=== PATIENT | female | born 1940 | race Caucasian/White ===

== ENCOUNTER → 2017-09-18 08:40 | Outpatient (CLI) | payer MEDICARE, SELFPAY ==
[2017-09-18 11:59] LABS: Alanine Aminotransferase 17 U/L (12-78); Albumin Level 3.4 gm/dL (3.4-5.0); Alkaline Phosphatase 75 U/L (46-116); Aspartate Amino Transferase 14 U/L (15-37); Bilirubin,Direct 0.1 mg/dL (0.0-0.2); Bilirubin,Total 0.4 mg/dL (0.2-1.0); Chol/HDL Ratio 4.5 (1-3.5); Cholesterol 211 mg/dL (140-200); HDL Cholesterol 47 mg/dL (29-89); LDL Cholesterol 109 mg/dL (0-130); Total Protein,Serum 6.8 gm/dL (6.4-8.2); Triglycerides 276 mg/dL (30-200); VLDL Cholesterol 55 mg/dL (0-40)
== END ==
PROVIDERS: PCP Internal Medicine; Visit Provider Internal Medicine
DX: E78.5 Hyperlipidemia, unspecified (principal)
CPT/HCPCS: 36415; 80061; 80076

== ENCOUNTER → 2017-10-31 09:24 | Outpatient (CLI) | payer MEDICARE, SELFPAY ==
--- NOTE | 2017-10-31 09:26 | US_ITS ---
US extremity RT limited CLINICAL INDICATION: ITS.REASON: Right knee pain and swelling ORDERING PHYSICIAN: OBDULIO Gray PATIENT AGE: 77 years FINDINGS: Ultrasound survey performed of the right knee shows no obvious Adler's cyst. A small amount fluid is present along the patella anteriorly. IMPRESSION: No Adler's cyst apparent Small amount of fluid along the prepatellar region
== END ==
PROVIDERS: PCP Physician Assistant; Visit Provider Physician Assistant
DX: M25.561 Pain in right knee (principal)
CPT/HCPCS: 76882

== ENCOUNTER → 2018-01-12 09:15 | Outpatient (CLI) | payer MEDICARE, SELFPAY | PROVIDERS: PCP Physician Assistant; Visit Provider Internal Medicine | DX: I25.10 Atherosclerotic heart disease of native coronary artery without angina pectoris (principal); R42 Dizziness and giddiness; I11.9 Hypertensive heart disease without heart failure; E78.2 Mixed hyperlipidemia; R60.9 Edema, unspecified | CPT/HCPCS: 93017 ==

== ENCOUNTER → 2018-01-22 09:55 | Outpatient (CLI) | payer MEDICARE, SELFPAY ==
[2018-01-22 10:30] LABS: Basophils # 0.1 K/mm3 (0-0.2); Basophils % 0.7 % (0.1-2.0); Eosinophils # 0.2 K/mm3 (0.0-0.4); Eosinophils % 2.6 % (0.1-12.0); Hematocrit 43.6 % (37.0-47.0); Hemoglobin 14.2 g/dL (12.2-16.2); Lymphocytes # 2.7 K/mm3 (0.7-4.5); Lymphocytes % 33.5 K/mm3 (10-50); Mean Corpuscular HGB Conc 32.6 g/dL (31.8-35.4); Mean Corpuscular Hemoglobin 28.2 pg (27.0-31.2); Mean Corpuscular Volume 86.5 fl (81-99); Mean Platelet Volume 7.4 fl (7.4-10.4); Monocytes # 0.5 K/mm3 (0.1-1.0); Neutrophils # 4.5 K/mm3 (1.8-7.8); Neutrophils % 57.2 % (37.0-80.0); Platelet Count 383 K/mm3 (142-424); Red Blood Count 5.04 M/mm3 (4.20-5.40); Red Cell Distribution Width 12.6 % (11.5-17.5); White Blood Count 7.9 K/mm3 (4.8-10.8)
[2018-01-22 11:30] LABS: Alanine Aminotransferase 20 U/L (12-78); Albumin Level 3.5 gm/dL (3.4-5.0); Alkaline Phosphatase 78 U/L (46-116); Anion Gap 10.7 mEq/L (5-15); Aspartate Amino Transferase 12 U/L (15-37); Bilirubin,Direct 0.1 mg/dL (0.0-0.2); Bilirubin,Indirect 0.4 mg/dL (0.0-0.9); Bilirubin,Total 0.5 mg/dL (0.2-1.0); Blood Urea Nitrogen 13 mg/dL (7-18); Calcium 9.6 mg/dL (8.5-10.1); Carbon Dioxide 31 mmol/L (21.0-32.0); Chloride 102 mmol/L (98-107); Chol/HDL Ratio 3.8 (1-3.5); Cholesterol 207 mg/dL (140-200); Creatinine,Serum 0.91 mg/dL (0.55-1.02); Estimated Glomerular Filt Rate 60 ml/min (>60); GFR (African American) 73 ML/MIN (>60); Glucose 106 mg/dL (74-106); HDL Cholesterol 54 mg/dL (29-89); LDL Cholesterol 107 mg/dL (0-130); Potassium 4.7 mmoL/L (3.5-5.1); Sodium 139 mmol/L (136-145); Total Protein,Serum 6.9 gm/dL (6.4-8.2); Triglycerides 232 mg/dL (30-200); VLDL Cholesterol 46 mg/dL (0-40)
== END ==
PROVIDERS: PCP Physician Assistant; Visit Provider Physician Assistant
DX: E78.2 Mixed hyperlipidemia (principal); I11.9 Hypertensive heart disease without heart failure; I25.10 Atherosclerotic heart disease of native coronary artery without angina pectoris; R94.39 Abnormal result of other cardiovascular function study; R07.89 Other chest pain
CPT/HCPCS: 36415; 80048; 80061; 80076; 85025

== ENCOUNTER → 2018-01-30 13:11 | Outpatient (CLI) | payer MEDICARE, SELFPAY ==
[2018-01-30 14:17] LABS: Free Thyroxine Index 4.4 ug/dL (5.93-13.13); T4 (Thyroxine) 12.8 ug/dl (4.7-13.3); Thyroid Stimulating Hormone 1.07 uIU/ml (0.358-3.740); Triiodothryronine (T3) Uptake 34 % (31-39)
== END ==
PROVIDERS: PCP Physician Assistant; Visit Provider Physician Assistant
DX: I25.10 Atherosclerotic heart disease of native coronary artery without angina pectoris (principal); E03.9 Hypothyroidism, unspecified
CPT/HCPCS: 36415; 84436; 84443; 84479

== ENCOUNTER → 2018-08-17 09:31 | Outpatient (CLI) | payer MEDICARE, SELFPAY ==
--- NOTE | 2018-08-17 09:37 | XR_ITS ---
XR knee RT 4V HISTORY: ITS.REASON: knee pain ORDERING PHYSICIAN: Jd Fernandez MD PATIENT AGE: 77 years COMPARISON: 190 FINDINGS: Weightbearing views are performed. There are mild tricompartmental osteoarthritic changes. Chondrocalcinosis is present at both medial and lateral menisci. No fracture or dislocation. IMPRESSION: Mild osteoarthritis with chondrocalcinosis
== END ==
PROVIDERS: PCP Physician Assistant; Visit Provider Orthopaedic Surgery
DX: M25.561 Pain in right knee (principal)
CPT/HCPCS: 73564

== ENCOUNTER → 2018-08-22 13:23 | Outpatient (CLI) | payer MEDICARE, SELFPAY ==
--- NOTE | 2018-08-22 13:25 | MR_ITS ---
MR knee RT wo con HISTORY: ITS.REASON: evaluate for meniscal tear/ loose body ORDERING PHYSICIAN: Jd Fernandez MD PATIENT AGE: 77 years Comparison: 08/17/2018 TECHNIQUE: Standard multiplanar multiecho sequences are performed without contrast. FINDINGS: The cruciate ligaments, collateral ligaments, patellar tendon, and quadriceps tendon have an unremarkable appearance. No meniscal tear evident. The patellar cartilage is preserved. There is some decrease in the joint space medially with minimal medial extrusion of the medial meniscus . No fracture or dislocation. No bone bruise. No evidence of avascular necrosis. Small knee joint effusion is present. There is some fluid noted in the prepatellar region which is nonspecific. IMPRESSION: 1. No evidence of internal derangement. 2. Mild osteoarthritic change of the medial compartment with small knee joint effusion
== END ==
PROVIDERS: PCP Emergency Medicine; Visit Provider Orthopaedic Surgery
DX: M25.561 Pain in right knee (principal)
CPT/HCPCS: 73721

== ENCOUNTER → 2019-03-19 13:47 | Outpatient (CLI) | payer MEDICARE, SELFPAY | PROVIDERS: Visit Provider Nurse Practitioner Family | DX: R10.9 Unspecified abdominal pain (principal) | CPT/HCPCS: 87086 ==

== ENCOUNTER → 2019-07-22 14:00 | Outpatient (CLI) | payer MEDICARE, SELFPAY | PROVIDERS: Visit Provider Emergency Medicine | DX: N39.0 Urinary tract infection, site not specified (principal) | CPT/HCPCS: 87086 ==

== ENCOUNTER → 2020-01-01 08:45 | Outpatient (CLI) | payer MEDICARE, SELFPAY ==
[2020-01-01 09:59] LABS: Free T4 (Free Thyroxine) 1.16 ng/dl (0.78-2.19)
[2020-01-01 10:13] LABS: Thyroid Stimulating Hormone 1.01 uIU/mL (0.465-4.68)
== END ==
PROVIDERS: Visit Provider Emergency Medicine
DX: R60.9 Edema, unspecified (principal)
CPT/HCPCS: 36415; 84439; 84443

== ENCOUNTER 2020-03-21 19:22 | Emergency (ER) | payer MEDICARE, SELFPAY ==
--- NOTE | 2020-03-21 19:31 | HMH.EDUTC ---
[facility] [place] Clinical Impression: Radicular pain in left arm Left shoulder pain Qualifiers: Chronicity: acute Qualified Code(s): M25.512 - Pain in left shoulder Disposition: Home, Self-Care Condition on Discharge: Good Instructions: DI for Shoulder Pain Additional Instructions: Rest the extremity, Elevate the extremity as tolerated while you are resting. No heavy lifting. Don't start the oral steroids until tomorrow, since you had the shot here today. Follow up with Dr. Rios (orthopedics) if you are not getting better. I put in a referral but you need to call her office and schedule an appointment. Follow up with your regular doctor. GO TO THE ER FOR ANY WORSENING SYMPTOMS Prescriptions: methylPREDNISolone [Medrol] 4 mg PO DIRECTED 6 Days #21 tab.ds.pk Transmission Status: Pending to [id number] Referrals: Aaron Reed MD [Primary Care Provider] - Joi Rios MD [Physician] - Time of Disposition: 20:02 Medical Decision Making - Medical Records Medical records reviewed: No: I reviewed the patient's medical records. - Rafi Inquiry Pt receiving controlled substance: No Vital Signs: 03/21/20 19:32 03/21/20 20:04 Temperature 98.4 F 98.4 F Temperature Source Oral Pulse Rate 85 Pulse Rate [Right Brachial] 85 Respiratory Rate 14 14 Blood Pressure 185/79 H Blood Pressure [Right Arm] 185/79 H Blood Pressure Mean [Right Arm] 114 Blood Pressure Source [Right Arm] Automatic Cuff Blood Pressure Position [Right Arm] Sitting 02 Sat by Pulse Oximetry 99 Oxygen Delivery Method Room Air - Lab Data Lab results reviewed: Yes: I reviewed the patient's lab results. Orders (Tests/Meds): ED MEDICATIONS Discontinued Medications Generic Name Dose Route Start Last Admin Trade Name Freq PRN Reason Stop Dose Admin Ketorolac Tromethamine 60 mg 03/21/20 19:39 03/21/20 19:46 Toradol 60mg/2ml Vial IM 03/21/20 19:40 60 mg ONCE ONE Administration Methylprednisolone Sodium Succinate 125 mg 03/21/20 19:39 03/21/20 19:46 Solu-Medrol 125mg/2ml Vial IM 03/21/20 19:40 125 mg ONCE ONE Administration [facility] [place] HPI - General Stated complaint: possible pulled muscle in L shoulder,arm,hand Time Seen by Provider: 03/21/20 19:35 - History of Present Illness Provider Complaint: She c/o left shoulder pain that radiates down the arm to her hand at times. This began about a week ago after she moved some heavy funiture. She denies any chest pain, jaw pain or any chance that this could be cardiac related. She states that in the past she has pulled a muscle in her shoulder and it felt just like this. - Related Data Home Medications Medication Instructions Recorded Confirmed aspirin 81 mg tablet,delayed 81 mg PO QDAY 06/28/17 07/22/19 release polyethylene glycol 3350 17 17 g PO DAILY g 10/10/17 07/22/19 gram/dose oral powder Previous Rx's Medication Instructions Recorded atorvastatin 40 mg tablet 40 mg PO DAILY #90 tab 06/21/18 diltiazem HCl 180 mg 180 mg PO DAILY #90 cap 03/07/19 capsule,extended release 24 hr losartan 100 mg tablet 100 mg PO DAILY #90 tab 05/27/19 levofloxacin 500 mg tablet 500 mg PO DAILY #7 tab 07/22/19 phenazopyridine 200 mg tablet 200 mg PO BID 3 Days #6 tab 07/22/19 levothyroxine 125 mcg tablet See Rx Instructions .ROUTE 12/30/19 .COMPLEX #90 tablet hydrochlorothiazide 50 mg tablet See Rx Instructions .ROUTE 02/06/20 .COMPLEX #90 tab estradiol 1 mg tablet See Rx Instructions .ROUTE 03/03/20 .COMPLEX #90 tab methylPREDNISolone [Medrol] 4 mg PO DIRECTED 6 Days #21 03/21/20 tab.ds.pk Allergies Allergy/AdvReac Type Severity Reaction Status Date / Time codeine Allergy Intermediate I-HIVES Verified 07/22/19 10:29 Penicillins Allergy Intermediate I-HIVES Verified 07/22/19 10:29 STEFFANY Inhibitors Allergy Verified 07/22/19 10:29 [facility] History - Hepatitis A Screen Attestation statement::
[2020-03-21 19:32] VITALS: BP 185/79; PULSE 85; RESP 14; TEMP 36.9; O2SAT 99; BMI 28.3
[2020-03-21 20:04] VITALS: BP 185/79; PULSE 85; RESP 14; TEMP 36.9; O2SAT 99
== END 2020-03-21 20:10 | disposition home or self-care (01) ==
PROVIDERS: Emergency Provider Nurse Practitioner Family; PCP Emergency Medicine
DX: M54.12 Radiculopathy, cervical region (principal); X50.0XXA Overexertion from strenuous movement or load, initial encounter; Y92.019 Unspecified place in single-family (private) house as the place of occurrence of the external cause; I25.10 Atherosclerotic heart disease of native coronary artery without angina pectoris; E78.5 Hyperlipidemia, unspecified; I10 Essential (primary) hypertension; E03.9 Hypothyroidism, unspecified; Z88.5 Allergy status to narcotic agent; Z79.899 Other long term (current) drug therapy; Z90.49 Acquired absence of other specified parts of digestive tract; Z90.710 Acquired absence of both cervix and uterus; Z88.0 Allergy status to penicillin
CPT/HCPCS: 96372; 99201

== ENCOUNTER → 2020-11-20 08:41 | Outpatient (CLI) | payer MEDICARE, SELFPAY ==
--- NOTE | 2020-11-20 08:42 | FL_ITS ---
PROCEDURE: FL BARIUM SWALLOW CLINICAL INDICATION: dysphagia to liquids and solids but more symptomatic with solid food COMPARISON: No exams were available for comparison TECHNIQUE: In the upright position the patient was observed to swallow barium in both the AP and lateral view. The cervical esophagus was examined under fluoroscopy with images obtained. The patient was then placed prone in the right anterior oblique position and was observed to swallow barium with Valsalva technique . FLUOROSCOPY TIME: 1.32 FINDINGS: There was no evidence of aspiration. The swallowing function and soft motility are normal. The anterior osteophytic spurring at the C5-6 level causing moderate posterior indentation of the barium column while swallowing causing compromise of the cervical esophageal lumen by approximately 40-50 percent. There is a small sliding hiatal hernia but there is no GE reflux seen during the study. IMPRESSION: Prominent focal osteophytic spurring lower cervical spine which certainly could be a cause for dysphagia primarily with solid foods, small sliding hiatal hernia without GE reflux Dictated by: Dr. Delfino Banegas MD 11/20/2020 12:42 Dr. Delfino Banegas MD in [place] 11/20/2020 12:42
== END ==
PROVIDERS: PCP Emergency Medicine; Visit Provider Otolaryngology
DX: R13.10 Dysphagia, unspecified (principal)
CPT/HCPCS: 74220

== ENCOUNTER → 2020-11-25 09:39 | Outpatient (CLI) | payer MEDICARE, SELFPAY ==
[2020-11-25 11:20] LABS: Blood Urea Nitrogen 16 mg/dl (7-17); Estimated Glomerular Filt Rate 69 ml/min (>60); GFR (African American) 84 ML/MIN (>60)
== END ==
PROVIDERS: Visit Provider Otolaryngology
DX: K11.8 Other diseases of salivary glands (principal)
CPT/HCPCS: 36415; 82565; 84520

== ENCOUNTER → 2020-12-01 12:44 | Outpatient (CLI) | payer MEDICARE, SELFPAY ==
--- NOTE | 2020-12-01 12:44 | CT_ITS ---
PROCEDURE: CT SOFT TISSUE NECK W CON CLINICAL HISTORY: right neck swelling COMPARISON: No exams were available for comparison TECHNIQUE: Oral Contrast: None IV Contrast: 75 mL Isovue 370 Axial images obtained with sagittal and coronal reformats. All CT scans at the facility use one or more dose reduction, viz: automated exposure control, ma/kV adjustment per patient size (including targeted exams where dose is matched to indication, i.e. head), or iterative reconstruction technique. FINDINGS: Nasopharynx has an unremarkable appearance. There is some increased soft tissue density in the left posterior oral pharynx possibly due to incomplete distension. Direct visualization suggested. The epiglottis and glottic region have an unremarkable appearance. Thyroid gland is small. Subglottic area is unremarkable. The parotid glands and submandibular glands are unremarkable. A BB is placed in the area of palpable concern. No abnormality is evident deep to the BB. There is mild prominence of the external jugular vein at this region. No obvious venous thrombosis. No enlarged lymph nodes or masses or abnormal fluid collections are apparent. No sinus air-fluid level or mastoid effusion. There are mild osteoarthritic changes of the TMJs and there is degenerative disc disease at C5-C6 with canal stenosis and bilateral foraminal narrowing. Right foraminal narrowing is present at C4-C5. Lung apices are clear. IMPRESSION: No CT abnormality that would correspond to the placed BB aside from mild prominence of the right external jugular vein. Slight asymmetric increased soft tissue density in the left posterior parapharyngeal region which may only be due to nondistention. Direct visualization suggested to exclude underlying mucosal lesion. Dictated by: Geronimo Wilkerson MD 12/01/2020 16:25 Geronimo Wilkerson MD in [place] 12/01/2020 16:25
== END ==
PROVIDERS: PCP Emergency Medicine; Visit Provider Otolaryngology
DX: K11.8 Other diseases of salivary glands (principal)
CPT/HCPCS: 70491; Q9967

== ENCOUNTER → 2021-02-15 08:46 | Outpatient (CLI) | payer MEDICARE, SELFPAY ==
--- NOTE | 2021-02-15 09:12 | US_ITS ---
PROCEDURE: US EXTREMITY LT LIMITED CLINICAL INDICATION: NODULE BEHIND LT KNEE,LEG PAIN COMPARISON: No exams were available for comparison FINDINGS: Ultrasound is performed of the popliteal fossa of the left knee. No solid mass or cystic lesions identified. IMPRESSION: Unremarkable ultrasound of the left popliteal fossa. If there is indeed a palpable abnormality then MRI may provide further evaluation. Dictated by: Geronimo Wilkerson MD 02/15/2021 14:26 Geronimo Wilkerson MD in [place] 02/15/2021 14:26
== END ==
PROVIDERS: PCP Emergency Medicine; Visit Provider Emergency Medicine
DX: M79.662 Pain in left lower leg (principal); R22.42 Localized swelling, mass and lump, left lower limb
CPT/HCPCS: 76882

== ENCOUNTER 2021-03-01 18:04 | Emergency (ER) | payer MEDICARE, SELFPAY ==
[2021-03-01 18:06] VITALS: BP 192/81; PULSE 78; RESP 13; TEMP 36.7; O2SAT 99; BMI 28.1
--- NOTE | 2021-03-01 18:16 | ECG_ITS ---
APPROVED REPORT Exam: Resting ECG HR:76 bpm ECG Measurements Heart Rate 76 AXES ID 214 P 79 QRSd 84 QRS 35 QT 422 T 62 QTc 474 Conclusion Sinus rhythm with 1st degree AV block Septal infarct, age undetermined Abnormal ECG Electronically signed by : Og Fleming MD 03/02/2021 10:44:52
--- NOTE | 2021-03-01 18:16 | HMH.EDNVD ---
ED Disposition Clinical Impression: Benign positional vertigo Qualifiers: Laterality: unspecified laterality Qualified Code(s): H81.10 - Benign paroxysmal vertigo, unspecified ear Disposition: Home, Self-Care Condition on Discharge: Fair Instructions: Benign Paroxysmal Positional Vertigo, DI for Benign Paroxysmal Positional Vertigo Additional Instructions: Please follow-up with your primary care physician in about 3 to 4 days if you do not notice any improvement. Return to the emergency department immediately if you start noticing difficulty moving your arms, face, legs. Prescriptions: Meclizine HCl [Meclizine 25mg Tab] 25 mg PO Q6H PRN #20 tab PRN Reason: Dizzines Transmission Status: [facility] to [facility] Referrals: Aaron Reed MD [Primary Care Provider] - - Critical Care Critical Care Time: No Attestation: On , the high probability of a clinically significant, sudden or life threatening deterioration of the following system(s) required my full and direct attention, intervention and personal management. The time I documented below is in addition to time spent performing reported procedures but includes the following listed in this critical care notation. Medical Decision Making - Medical Records Medical records reviewed: Yes: I reviewed the patient's medical records. - Rafi Inquiry Pt receiving controlled substance: No Vital Signs: 03/01/21 18:06 03/01/21 18:28 03/01/21 18:30 Temperature 98.1 F Temperature Source Oral Pulse Rate 74 70 Pulse Rate [Left] 78 Respiratory Rate 13 16 16 Blood Pressure 183/77 H 179/76 H Blood Pressure [Right Arm] 192/81 H Blood Pressure Mean 112 111 Blood Pressure Mean [Right Arm] 118 02 Sat by Pulse Oximetry 99 98 98 Oxygen Delivery Method Room Air - Lab Data Lab Results 03/01/21 18:15: WBC 10.6, RBC 5.37, Hgb 15.6, Hct 46.9, MCV 87.2, MCH 29.0, MCHC 33.2, RDW 13.0, Plt Count 412, MPV 7.6, Neut % (Auto) 51.0, Lymph % (Auto) 38.8, [place] % (Auto) 7.1, Eos % (Auto) 2.1, Baso % (Auto) 1.1, Neut # (Auto) 5.4, Lymph # (Auto) 4.1, [place] # (Auto) 0.8, Eos # (Auto) 0.2, Baso # (Auto) 0.1 03/01/21 18:15: Sodium 134 L, Potassium 3.1 L, Chloride 96 L, Carbon Dioxide 29, Anion Gap 12.1, BUN 12, Creatinine 0.80, Estimated Creat Clear 58, Estimated GFR 69, Est GFR ( Amer) 84, Glucose 113 H, Calcium 9.2, Total Bilirubin 0.4, AST 28, ALT 20, Alkaline Phosphatase 88, Total Protein 7.2, Albumin 4.0, Globulin 3.2, Albumin/Globulin Ratio 1.3, Lipase 118 Result diagrams: 03/01/21 18:15 03/01/21 18:15 Orders (Tests/Meds): ED MEDICATIONS Discontinued Medications Generic Name Dose Route Start Last Admin Trade Name Georges PRN Reason Stop Dose Admin Meclizine HCl 50 mg 03/01/21 19:21 03/01/21 19:34 Meclizine 25mg Tablet PO 03/01/21 19:22 50 mg ONCE ONE Administration Ondansetron HCl 4 mg 03/01/21 18:20 03/01/21 18:25 Ondansetron 4mg/2ml Vial IV 03/01/21 18:21 4 mg ONCE ONE Administration - ECG Data Tracing #1 I reviewed this ECG and interpreted as documented below: The patient's EKG was done at 1817. It shows a normal sinus rhythm with a rate of 76 bpm. There is no evidence of acute ischemia. There are Q waves in V1 and V2. These are nonspecific. No evidence of dysrhythmia. Normal Sinus Rhythm: Yes - Reevaluation(s) Time: 19:22 Reevaluation #1: That she feels better and wants to go home. However, when I sat the patient up she started getting dizzy again. This is most consistent with benign positional vertigo given the fact that the patient has no other neurologic focal deficits. The patient will be given meclizine in the emergency department and hopefully will be able to be discharged later with a prescription for meclizine. Patient's blood pressure has improved significantly. It is now in the 166 systolic without any intervention other than Zofran. Time: 20:02 Reevaluation #3: Add meclizine. Whe
[2021-03-01 18:26] LABS: Basophils # 0.1 K/mm3 (0-0.2); Basophils % 1.1 % (0.1-2.0); Eosinophils # 0.2 K/mm3 (0.0-0.4); Eosinophils % 2.1 % (0.1-12.0); Hematocrit 46.9 % (37.0-47.0); Hemoglobin 15.6 g/dL (12.2-16.2); Lymphocytes # 4.1 K/mm3 (0.7-4.5); Lymphocytes % 38.8 % (10-50); Mean Corpuscular HGB Conc 33.2 g/dL (31.8-35.4); Mean Corpuscular Volume 87.2 fl (81-99); Mean Platelet Volume 7.6 fl (7.4-10.4); Monocytes # 0.8 K/mm3 (0.1-1.0); Monocytes % 7.1 % (1.7-9.3); Neutrophils # 5.4 K/mm3 (1.8-7.8); Platelet Count 412 K/mm3 (142-424); Red Blood Count 5.37 M/mm3 (4.20-5.40); White Blood Count 10.6 K/mm3 (4.8-10.8)
[2021-03-01 18:28] VITALS: BP 183/77; PULSE 74; RESP 16; O2SAT 98
[2021-03-01 18:30] VITALS: BP 179/76; PULSE 70; RESP 16; O2SAT 98
[2021-03-01 18:30] LABS: Chloride 96 mmol/L (98-107); Potassium 3.1 mmoL/L (3.5-5.1); Sodium 134 mmol/L (136-145)
[2021-03-01 18:33] LABS: Alanine Aminotransferase 20 U/L (12-78); Albumin/Globulin Ratio 1.3 (1.1-1.8); Alkaline Phosphatase 88 U/L (38-126); Anion Gap 12.1 mEq/L (5-15); Aspartate Amino Transferase 28 U/L (14-36); Bilirubin,Total 0.4 mg/dl (0.2-1.3); Blood Urea Nitrogen 12 mg/dl (7-17); Calcium 9.2 mg/dl (8.4-10.2); Carbon Dioxide 29 mmol/L (22.0-30.0); Creatinine Clearance Estimated 58 mL/min (50-200); Estimated Glomerular Filt Rate 69 ml/min (>60); GFR (African American) 84 ML/MIN (>60); Globulin 3.2 g/dL (1.3-3.2); Glucose 113 mg/dl (74-100); Lipase 118 U/L (23-300); Total Protein,Serum 7.2 g/dl (6.3-8.2)
[2021-03-01 20:06] VITALS: BP 179/76; PULSE 70; RESP 18; TEMP 36.7; O2SAT 98
== END 2021-03-01 20:09 | disposition home or self-care (01) ==
PROVIDERS: Emergency Provider Emergency Medicine; PCP Emergency Medicine
DX: H81.10 Benign paroxysmal vertigo, unspecified ear (principal); I10 Essential (primary) hypertension; E03.9 Hypothyroidism, unspecified; E78.5 Hyperlipidemia, unspecified
CPT/HCPCS: 80053; 83690; 85025; 93005; 96374; 99282; J2405

== ENCOUNTER → 2021-03-04 12:46 | Outpatient (CLI) | payer MEDICARE, SELFPAY ==
--- NOTE | 2021-03-04 12:46 | MR_ITS ---
PROCEDURE: MR KNEE LT WO CON CLINICAL INDICATION: mass? Knee pain with possible mass COMPARISON: MR KNEERTWO MR knee RT wo con from 08/22/2018 TECHNIQUE: Routine multiplanar multi echo sequences are performed without gadolinium enhancement. FINDINGS: The cruciate ligaments appear intact the collateral ligaments are unremarkable. The patellar tendon and quadriceps tendon have an unremarkable appearance. The patellar cartilage is preserved. Nondisplaced horizontal tear involves the anterior horn of the medial meniscus medially which extends to the anterior free edge. There is a small knee joint effusion. There is slight increased T2 signal involving the posterior horn of the medial meniscus but does not meet criteria for meniscal tear. Small knee joint effusion noted. No bone bruise. No mass apparent. There are minimal osteoarthritic changes IMPRESSION: Nondisplaced horizontal tear involves the anterior horn of the lateral meniscus medially with small knee joint effusion and mild osteoarthritic change. Dictated by: eGronimo Wilkerson MD 03/05/2021 12:47 Geronimo Wilkerson MD in [place] 03/05/2021 12:47
== END ==
PROVIDERS: PCP Emergency Medicine; Visit Provider Emergency Medicine
DX: M25.562 Pain in left knee (principal)
CPT/HCPCS: 73721

== ENCOUNTER → 2021-03-08 10:35 | Outpatient (CLI) | payer MEDICARE, SELFPAY | PROVIDERS: PCP Emergency Medicine; Visit Provider Nurse Practitioner | DX: Z11.52 Encounter for screening for COVID-19 (principal); U07.1 COVID-19 | CPT/HCPCS: C9803; U0003; U0005 ==

== ENCOUNTER → 2021-03-16 15:50 | Outpatient (CLI) | payer MEDICARE, SELFPAY ==
[2021-03-16] VITALS (9 sets, daily range): BP systolic 140–188; BP diastolic 74–89; PULSE 61–86; RESP 16–18; TEMP 36.1–36.2; O2SAT 98
--- NOTE | 2021-03-16 12:31 | PC.NURSE ---
INFUSION STARTED AT 1149 AND COMPLETED AT 1225. PT SITTING IN CHAIR DRINKING GORDY MIST
== END | disposition home or self-care (01) ==
PROVIDERS: PCP Emergency Medicine; Visit Provider Emergency Medicine
DX: U07.1 COVID-19 (principal)
CPT/HCPCS: 96365

== ENCOUNTER → 2021-03-30 12:28 | Outpatient (CLI) | payer MEDICARE, SELFPAY ==
--- NOTE | 2021-03-30 12:31 | XR_ITS ---
PROCEDURE: XR KNEE LT 4V CLINICAL INDICATION: left knee pain COMPARISON: CR [id number] XR knee RT 3V from 10/28/2017 CR [id number] XR knee RT 4V from 08/17/2018 FINDINGS: No fracture or dislocation. No lytic or blastic change. There is normal mineralization. There are mild tricompartmental osteoarthritic changes. Other findings:Minimal chondrocalcinosis of the medial and lateral meniscus. IMPRESSION: Mild osteoarthritis with chondrocalcinosis. Dictated by: Geronimo Wilkerson MD 03/30/2021 16:57 Geronimo Wilkerson MD in [place] 03/30/2021 16:57
--- NOTE | 2021-03-30 14:05 | XR_ITS ---
PROCEDURE: XR HIP LT 2-3V W/PELVIS CLINICAL INDICATION: left hip pain COMPARISON: No exams were available for comparison FINDINGS: An AP view of the pelvis shows mild osteoarthritic changes of both hips. Two views of the left hip show no fracture or dislocation. No lytic or blastic change. Nonspecific small areas of calcification located along the lateral aspect of the acetabulum and along the greater trochanter of the left femur. Suture line is present in the left pelvic region. There are mild degenerative changes of the SI joints. Degenerative changes are also present in the lower lumbar spine. IMPRESSION: Mild osteoarthritic changes of the hips, no acute finding. Dictated by: Geronimo Wilkerson MD 03/30/2021 15:03 Geronimo Wilkerson MD in [place] 03/30/2021 15:03
== END ==
PROVIDERS: PCP Emergency Medicine; Visit Provider Orthopaedic Surgery
DX: M25.562 Pain in left knee (principal); M25.552 Pain in left hip
CPT/HCPCS: 73502; 73564

== ENCOUNTER 2021-04-22 11:00 | Outpatient (RCR) | payer MEDICARE, SELFPAY ==
--- NOTE | 2021-04-07 10:37 | HMH.PTOPEV ---
PT Outpatient Evaluation Rehab PT Outpatient Evaluation Start: 04/07/21 10:24 Freq: Status: Active Protocol: Document 04/07/21 10:24 CONSTANTINO (Rec: 04/07/21 10:37 CONSTANTINO [id number]) Electronically Signed By Ramone Mcneil, PT 04/07/21 10:24 Outpatient Therapy Subjective History Subjective History Patient is an 80 year old female presenting to outpatient PT with reports of L knee pain starting approximately 1 month ago. Patient reports that symptom onset started after increased activities going up and down stairs. Most recent imaging indicates lateral meniscus tear and OA. Pain is specific to distal hamstring insertions lateral >medail. Comorbidities include hx of lumbar discectomy x 2, cholecystectomy and HTN. Chief Complaint Pain,Stiff,Swelling,Catches/ Locks,Weakness Symptom Type Sharp,Burning Symptoms Relieved By Rest/Positioning,OTC Meds Symptoms Aggravated By Standing,Physical Activity, Walking Prior Functional Limitations None Current Functional Limitations Housework,Standing,Walking, Stairs,Balance Symptom Description Constant but Variable Level of pain today (0-10) 2 Pain scale - at its best (0-10) 1 Pain scale - at its worst (0-10) 9 Hip/Knee Eval Gait Observation General Gait Pattern Observation Antalgic Gait,Decrease Weight Bear (L) Palpation Tenderness left Knee Palpation Finding Tenderness Knee Palpation Overall Comment distal HS insertions lateral> medial 3/4 MMT Hip Flexion Strength Grade 4- Good- Hip Abduction Strength Grade 4 Good Hip Adduction Strength Grade 4 Good Hip Extension Strength Grade 4- Good- Hip External Rotation Strength Grade 4- Good- Hip Internal Rotation Strength Grade 4- Good- Knee Extension Strength Grade 4- Good- Knee Flexion Strength Grade 4- Good- ROM Hip ROM Reason Not Measured Within Functional Limits Knee Extension Active Range of Motion ( -4 degrees) Knee Flexion Active Range of Motion ( 120 degrees) Special Tests Knee Pivot Shift Test Negative Left Knee Valgus Stress Test Negative Left Knee Varus Stress Test Negative Left Knee Coral Test
== END 2021-04-22 11:05 | disposition home or self-care (01) ==
LOC: PT 11:00
PROVIDERS: PCP Emergency Medicine; Visit Provider Orthopaedic Surgery
DX: M17.12 Unilateral primary osteoarthritis, left knee; S83.282D Other tear of lateral meniscus, current injury, left knee, subsequent encounter
CPT/HCPCS: 97110; 97163

== ENCOUNTER 2022-07-25 20:49 | Emergency (ER) | payer MEDICARE, SELFPAY ==
[2022-07-25 20:50] VITALS: BP 190/90; PULSE 113; RESP 16; TEMP 36.7; O2SAT 97; BMI 27.6
--- NOTE | 2022-07-25 21:21 | HMH.EDSKAF ---
Discharge Plan Disposition Patient Disposition: Home, Self-Care Chief Complaint: Skin/Abscess/Foreign Body Prescriptions Prescriptions: No Action levothyroxine 125 mcg tablet See Rx Instructions .ROUTE .COMPLEX Qty: 90 3RF Dose Instruction: TAKE ONE TABLET BY MOUTH EVERY DAY Rx Instructions: TAKE ONE TABLET BY MOUTH EVERY DAY hydrochlorothiazide 50 mg tablet See Rx Instructions .ROUTE .COMPLEX Qty: 90 3RF Dose Instruction: TAKE ONE TABLET BY MOUTH EVERY DAY Rx Instructions: TAKE ONE TABLET BY MOUTH EVERY DAY estradiol 1 mg tablet See Rx Instructions .ROUTE .COMPLEX Qty: 90 0RF Dose Instruction: TAKE 1 TABLET BY MOUTH EVERY DAY Rx Instructions: TAKE 1 TABLET BY MOUTH EVERY DAY Referrals Follow up/Referrals: Aaron Reed MD [Primary Care Provider] - See instructions Clinical Impressions Clinical Impression: Superficial laceration Instructions Patient Instructions: DI for Minor Laceration Discharge ED Provider: Brianna (ED)Aaron Skin/Abscess/FB HPI General Chief complaint: Skin/Abscess/Foreign Body Stated complaint: vaginal bleeding Time Seen by Provider: 07/25/22 21:21 Mode of Arrival: Ambulatory Source of Information: Patient and Medical Record Limitations: No Limitations Description of Symptoms (Recalled from ER Triage Doc. by RN): the pt c/o bleeding from vaginal area the pt states that she felt as if she had an odor and that she thought maybe it was coming from the hair so she snipped the hair and knicked her skin on the left lower labia History of Present Illness HPI narrative: snipped lt ext vaginal area tonight with persistent bleeding complaint: laceration Onset (ago): hour(s) Location: genitals Severity: mild Associated symptoms: denies other symptoms Treatments prior to arrival: none Related Data Previous Rx's Medication Instructions Recorded levothyroxine 125 mcg tablet See Rx Instructions .Route 10/05/21 .COMPLEX #90 tabs hydrochlorothiazide 50 mg tablet See Rx Instructions .Route 05/12/22 .COMPLEX #90 tabs estradiol 1 mg tablet See Rx Instructions .Route 05/23/22 .COMPLEX #90 tabs Allergies Allergy/AdvReac Type Severity Reaction Status Date / Time codeine Allergy Intermediate I-HIVES Verified 03/30/21 14:45 Penicillins Allergy Intermediate I-HIVES Verified 03/30/21 14:45 STEFFANY Inhibitors Allergy Verified 03/30/21 14:45 [facility] Disclaimer: The information contained in this section may have been updated after the patient was seen, as this information can be updated by other users. Social History Smoking Status: Smoker, status unknown second hand exposure: No alcohol intake: never substance use type: denies use current occupational status: retired Travel in the last 8 weeks: None household members: spouse and family housing: house current occupational exposures/hazards: No ROS Obtained: Yes All systems reviewed & no additional complaints except as documented Physical Exam General General appearance: alert Head Head exam: normocephalic Eye Eye exam: Present PERRL and EOMI ENT ENT exam: Present mucous membranes dry Neck Neck exam: Present trachea midline Respiratory Respiratory exam: Absent respiratory distress Cardiovascular Cardiovascular exam: Present regular rate Abdominal Exam Abdominal exam: Present soft External exam: Present other (sl bleeding lt ext vaginal area ) Extremities Exam Extremities exam: Present full ROM Neurological Exam Neurological exam: Present alert and CN II-XII intact Psychiatric Psychiatric exam: Present normal affect Skin Skin exam: Absent rash Medical Decision Making Medical Records Medical records reviewed: Yes I reviewed the patient's medical records. Rafi Inquiry Pt receiving controlled substance: No Vital Signs: 07/25/22 20:50 Temperature 98.1 F Temperature Source Oral Pulse Rate [Left] 113 H Respiratory Rate 16
[2022-07-25 21:35] VITALS: BP 165/83; PULSE 76; RESP 18; TEMP 36.8; O2SAT 96
== END 2022-07-25 21:37 | disposition home or self-care (01) ==
PROVIDERS: Emergency Provider Emergency Medicine; PCP Emergency Medicine
DX: N93.9 Abnormal uterine and vaginal bleeding, unspecified (principal)
CPT/HCPCS: 99283

== ENCOUNTER → 2022-11-01 09:15 | Outpatient (CLI) | payer MEDICARE, SELFPAY ==
[2022-11-01 14:21] LABS: Basophils % 0.6 % (0.1-2.0); Eosinophils # 0.1 K/mm3 (0.0-0.4); Eosinophils % 1.6 % (0.1-12.0); Hematocrit 46.2 % (37.0-47.0); Hemoglobin 15.2 g/dL (12.2-16.2); Lymphocytes # 2.5 K/mm3 (0.7-4.5); Lymphocytes % 36.6 % (10-50); Mean Corpuscular HGB Conc 32.8 g/dL (31.8-35.4); Mean Corpuscular Hemoglobin 28.6 pg (27.0-31.2); Mean Corpuscular Volume 87.1 fl (81-99); Mean Platelet Volume 9.4 fl (7.4-10.4); Monocytes # 0.5 K/mm3 (0.1-1.0); Monocytes % 7.5 % (1.7-9.3); Neutrophils # 3.7 K/mm3 (1.8-7.8); Neutrophils % 53.7 % (37.0-80.0); Platelet Count 366 K/mm3 (142-424); Red Blood Count 5.31 M/mm3 (4.20-5.40); Red Cell Distribution Width 12.9 % (11.5-17.5); White Blood Count 6.9 K/mm3 (4.8-10.8)
[2022-11-01 14:32] LABS: Chloride 93 mmol/L (98-107)
[2022-11-01 14:33] LABS: Potassium 3.9 mmoL/L (3.5-5.1); Sodium 134 mmol/L (136-145)
[2022-11-01 14:35] LABS: Alanine Aminotransferase 19 U/L (12-78); Albumin/Globulin Ratio 1.4 (1.1-1.8); Alkaline Phosphatase 75 U/L (38-126); Anion Gap 15.9 mEq/L (5-15); Aspartate Amino Transferase 27 U/L (14-36); Bilirubin,Total 0.6 mg/dl (0.2-1.3); Blood Urea Nitrogen 12 mg/dl (7-17); Calcium 9.2 mg/dl (8.4-10.2); Carbon Dioxide 29 mmol/L (22.0-30.0); Estimated Glomerular Filt Rate 69 ml/min (>60); GFR (African American) 83 ML/MIN (>60); Globulin 2.8 g/dL (1.3-3.2); Glucose 107 mg/dl (74-100); Total Protein,Serum 6.8 g/dl (6.3-8.2)
[2022-11-01 14:51] LABS: Triiodothryronine (T3) Uptake 32 % (23.5-40.5)
[2022-11-01 14:52] LABS: Free Thyroxine Index 4.4 ug/dL (5.93-13.13); T4 (Thyroxine) 13.9 ug/dl (5.53-11.0)
[2022-11-01 15:05] LABS: Thyroid Stimulating Hormone 0.32 uIU/mL (0.465-4.68)
== END ==
PROVIDERS: PCP Nurse Practitioner Family; Visit Provider Nurse Practitioner Family
DX: E03.9 Hypothyroidism, unspecified (principal)
CPT/HCPCS: 80053; 84436; 84443; 84479; 85025

== ENCOUNTER → 2022-11-08 10:14 | Outpatient (CLI) | payer MEDICARE, SELFPAY ==
--- NOTE | 2022-11-08 10:18 | XR_ITS ---
FINAL REPORT CLINICAL HISTORY: right knee pain FINDINGS: RIGHT KNEE: 4 views of the right knee obtained. There is no acute fracture or dislocation. There are mild degenerative changes. Meniscal calcification is noted. There is no soft tissue abnormality. IMPRESSION: No acute fracture Reviewed, Interpreted and Dictated by Carrington Adams III, MD Transcribed by Cristina Phillips Authenticated and [facility]
== END ==
PROVIDERS: PCP Emergency Medicine; Visit Provider Nurse Practitioner Family
DX: M25.561 Pain in right knee (principal)
CPT/HCPCS: 73562

== ENCOUNTER 2022-11-14 16:07 | Emergency (ER) | payer MEDICARE, SELFPAY ==
[2022-11-14 16:55] VITALS: BP 174/89; PULSE 70; RESP 20; TEMP 36.7; O2SAT 98; BMI 27.3
--- NOTE | 2022-11-14 17:18 | EXP.UTC ---
Discharge Plan Disposition Patient Disposition: Home, Self-Care Condition: Good Prescriptions Prescriptions: No Action hydrochlorothiazide 50 mg tablet 50 mg PO DAILY Rx Instructions: TAKE ONE TABLET BY MOUTH EVERY DAY estradiol 1 mg tablet 1 mg PO DAILY Rx Instructions: TAKE 1 TABLET BY MOUTH EVERY DAY levothyroxine 112 mcg capsule 112 mcg PO DAILY Referrals Follow up/Referrals: Aaron Reed MD [Primary Care Provider] - See instructions Activity Restrictions/Add. Instructions Additional Instructions/Restrictions: *weight bearing as tolerated Use your walker to help with getting around *RICE, Rest the extremity, Ice 15-20 minutes 3-4 times daily, Compress- wear the johnny wrap as discussed as much as possible to help reduce swelling and pain, Elevate the extremity when at rest *Johnny wrap is for support and help control swelling, use it except in the shower. Be sure that is not to tight but not to loose either *Elevate when resting? *Ibuprofen if you can take every 6-8 hours as needed for pain an inflammation. If need something more can take Tylenol in between doses of Ibuprofen to help Immediately follow up with your family doctor for new or worsening of symptoms, or no noticeable improvement over the next 3-5 days Clinical Impressions Clinical Impression: Knee pain Instructions Patient Instructions: DI for Knee Pain Discharge ED Provider: Katherin Hayden [facility] General Stated complaint: AO 10/31, right knee pain Mode of Arrival: Ambulatory Source of Information: Patient Limitations: No Limitations Time Seen by Provider: 11/14/22 17:10 Description of Symptoms (Recalled from Triage Doc. by RN): PATIENT C/O RIGHT KNEE PAIN X 3 WEEKS. NO KNOWN INJURY HEENT Symptoms (Recalled from RN notes): No Resp Symptoms (Recalled from RN notes): No Skin Symptoms (Recalled from RN notes): No MS Symptoms (Recalled from RN notes): Yes Functional Status (Recalled from RN notes): WNL History of Present Illness Provider Complaint: Patient states that she has been having pain in her right knee for about 3 weeks States that she has been seen several times and got injections but hasnt helped much States that she has seen PCP and Orthopedics States that today her knee was hurting her worse and she called to get into to Ortopedics but they was unable to get her in so she came in here to see if she could get something to help with the pain Denies new injury Related Data Home Medications Medication Instructions Recorded Confirmed estradiol 1 mg tablet 1 mg PO DAILY Supplement 11/14/22 11/14/22 hydrochlorothiazide 50 mg tablet 50 mg PO DAILY Hypertension 11/14/22 11/14/22 levothyroxine 112 mcg capsule 112 mcg PO DAILY Hypothyroid 11/14/22 11/14/22 Allergies Allergy/AdvReac Type Severity Reaction Status Date / Time codeine Allergy Intermediate I-HIVES Verified 11/08/22 10:49 Penicillins Allergy Intermediate I-HIVES Verified 11/08/22 10:49 JOHNNY Inhibitors Allergy Verified 11/08/22 10:49 Worker's Comp Is this a Worker's Comp case?: No PFSH PFS Disclaimer: The information contained in this section may have been updated after the patient was seen, as this information can be updated by other users. Social History Smoking Status: Never smoker second hand exposure: No alcohol intake: never substance use type: denies use current occupational status: retired Travel in the last 8 weeks: None household members: spouse and family housing: house current occupational exposures/hazards: No ROS Obtained: Yes All systems reviewed & no additional complaints except as documented and Yes Systems reviewed as appropriate & no additional complaints except as documented Constitutional Constitutional: Reports system reviewed and no additional complaints, except as documented and Reports as per HPI ENT Ears, Nose, Mouth, and Throat: Rep
[2022-11-14 17:34] VITALS: BP 174/89; PULSE 70; RESP 20; TEMP 36.7; O2SAT 98
== END 2022-11-14 17:45 | disposition home or self-care (01) ==
PROVIDERS: Emergency Provider Nurse Practitioner; PCP Emergency Medicine
DX: M25.561 Pain in right knee (principal)
CPT/HCPCS: 96372; 99212; 99214; G0463

== ENCOUNTER → 2023-01-10 16:49 | Outpatient (CLI) | payer MEDICARE, SELFPAY | PROVIDERS: PCP Emergency Medicine; Visit Provider Emergency Medicine | DX: N39.0 Urinary tract infection, site not specified (principal); B96.89 Other specified bacterial agents as the cause of diseases classified elsewhere | CPT/HCPCS: 87086; 87088 ==

== ENCOUNTER → 2023-01-16 12:19 | Outpatient (CLI) | payer MEDICARE, SELFPAY ==
--- NOTE | 2023-01-16 12:19 | NM_ITS ---
APPROVED REPORT Exam: Nuclear Stress Test Indication: HTN, FM HX, C.P., SOB, PALPITATIONS, FATIGUE Patient Location: ER [place] Tech:CLARISA Mac RT(R)(N) Ht: 5 ft 7 in Wt: 173 lbs Bra Size: 34B BSA: 1.90 m2 BMI: 27.0 History: HTN, FM HX, C.P., SOB, PALPITATIONS, FATIGUE REST IMAGES ONLY-PATIENT'S EXAM WAS NOT FINISHED DUE TO HIGH BLOOD PRESSURE PT WAS SENT TO THE ER, AND HAD A HEART CATH ON THE 01-20-23 Cardiac Stress and Resting SPECT Images: The patient underwent resting imaging only. The remainder of her exam was not completed due to elevated blood pressure, after which she was transferred to the ER. During her hospitalization she eventually underwent cardiac catheterization on 01/20/2023. Resting imaging demonstrates a large sized, severe, perfusion defect in the septal and anteroseptal LV wall. Distinction between fixed versus reversible perfusion defect cannot be made due to absence of stress imaging. Gated imaging is not available due to in availability of stress imaging. Conclusion: The patient underwent resting imaging only. The remainder of her exam was not completed due to elevated blood pressure, after which she was transferred to the ER. During her hospitalization she eventually underwent cardiac catheterization on 01/20/2023. Resting imaging demonstrates a large sized, severe, perfusion defect in the septal and anteroseptal LV wall. Distinction between fixed versus reversible perfusion defect cannot be made due to absence of stress imaging. Gated imaging is not available due to in availability of stress imaging. Electronically signed by : Jessica Melgoza, 01/31/2023 13:14:50
== END ==
PROVIDERS: PCP Emergency Medicine; Visit Provider Emergency Medicine
DX: I25.10 Atherosclerotic heart disease of native coronary artery without angina pectoris (principal)
CPT/HCPCS: 78452; A9502

== ENCOUNTER 2023-01-16 13:47 | Emergency (ER) | payer MEDICARE, SELFPAY ==
[2023-01-16 13:53] VITALS: BP 215/86; PULSE 82; RESP 17; TEMP 36.6; O2SAT 97; BMI 27.1
[2023-01-16 14:01] VITALS: BP 198/86; PULSE 78; O2SAT 97
--- NOTE | 2023-01-16 14:14 | PC.NURSE ---
DR MORA AT BEDSIDE
--- NOTE | 2023-01-16 14:26 | HMH.EDGENADL ---
Discharge Plan Disposition Patient Disposition: Home, Self-Care Prescriptions Prescriptions: No Action cephalexin 500 mg capsule 500 mg PO BID Qty: 14 0RF lisinopril 5 mg tablet 5 mg PO DAILY Qty: 30 0RF estradiol 1 mg tablet 1 mg PO DAILY Qty: 90 0RF Rx Instructions: TAKE 1 TABLET BY MOUTH EVERY DAY hydrochlorothiazide 50 mg tablet 50 mg PO DAILY Rx Instructions: TAKE ONE TABLET BY MOUTH EVERY DAY levothyroxine 112 mcg capsule 112 mcg PO DAILY Referrals Follow up/Referrals: Aaron Reed MD [Primary Care Provider] - See instructions Activity Restrictions/Add. Instructions Additional Instructions/Restrictions: Follow-up with your family doctor regarding visit to the emergency department. If you have any worsening of your condition or any other concerning signs or symptoms, return to the emergency department or your primary care doctor for further evaluation. Clinical Impressions Clinical Impression: Asymptomatic hypertension Discharge ED Provider: Willie Hwang General Adult HPI General Chief complaint: Recheck/Abnormal Lab/Rx Stated complaint: elevated bp Time Seen by Provider: 01/16/23 13:55 Mode of Arrival: Wheelchair Limitations: No Limitations Description of Symptoms (Recalled from ER Triage Doc. by RN): PT BROUGHT FROM STRESS LAB FOR ELEVATED B/P. [employer] HELPER REPORTS SYSTOLIC B/P OVER 200. PT ASYMPTOMATIC. History of Present Illness HPI narrative: This is an 82-year-old female with history of hypertension, hyperlipidemia, CAD presenting with asymptomatic hypertension. Patient states that she was in clinic receiving stress test today when she was told her blood pressure was too high to receive stress test, so was sent to the emergency department. Patient denies any symptoms at this time. Related Data Home Medications Medication Instructions Recorded Confirmed hydrochlorothiazide 50 mg tablet 50 mg PO DAILY Hypertension 11/14/22 01/10/23 levothyroxine 112 mcg capsule 112 mcg PO DAILY Hypothyroid 11/14/22 01/10/23 Previous Rx's Medication Instructions Recorded estradiol 1 mg tablet 1 mg PO DAILY Supplement #90 tabs 11/25/22 cephalexin 500 mg capsule 500 mg PO BID #14 caps 01/10/23 lisinopril 5 mg tablet 5 mg PO DAILY #30 tabs 01/10/23 Allergies Allergy/AdvReac Type Severity Reaction Status Date / Time codeine Allergy Intermediate I-HIVES Verified 01/10/23 08:52 Penicillins Allergy Intermediate I-HIVES Verified 01/10/23 08:52 STEFFANY Inhibitors Allergy Verified 01/10/23 08:52 PFSH [facility] Disclaimer: The information contained in this section may have been updated after the patient was seen, as this information can be updated by other users. Social History Smoking Status: Never smoker second hand exposure: No alcohol intake: never substance use type: denies use current occupational status: retired Travel in the last 8 weeks: None household members: spouse and family housing: house current occupational exposures/hazards: No ROS Obtained: Yes All systems reviewed & no additional complaints except as documented Physical Exam General General appearance: alert and in no apparent distress Head Head exam: atraumatic, normocephalic and normal inspection Eye Eye exam: Present normal appearance, PERRL and EOMI ENT ENT exam: Present normal exam, normal oropharynx, mucous membranes moist, TM's normal bilaterally and normal external ear exam Neck Neck exam: Present normal inspection, full ROM and trachea midline; Absent meningismus or lymphadenopathy Chest Chest inspection: Present normal inspection and symmetric chest wall rise; Absent tenderness Respiratory Respiratory exam: Present normal lung sounds bilaterally; Absent respiratory distress Cardiovascular Cardiovascular exam: Present regular rate and normal rhythm; Absent JVD Abdominal Exam Abdominal exam: Present soft and normal bowel s
[2023-01-16 14:31] VITALS: BP 186/81; PULSE 74; O2SAT 99
[2023-01-16 14:31] LABS: Basophils # 0.1 K/mm3 (0-0.2); Basophils % 0.5 % (0.1-2.0); Eosinophils # 0.1 K/mm3 (0.0-0.4); Eosinophils % 1.2 % (0.1-12.0); Hematocrit 45.9 % (37.0-47.0); Hemoglobin 14.9 g/dL (12.2-16.2); Lymphocytes # 2.4 K/mm3 (0.7-4.5); Lymphocytes % 25.4 % (10-50); Mean Corpuscular HGB Conc 32.5 g/dL (31.8-35.4); Mean Corpuscular Hemoglobin 27.7 pg (27.0-31.2); Mean Corpuscular Volume 85.2 fl (81-99); Mean Platelet Volume 8.1 fl (7.4-10.4); Monocytes # 0.5 K/mm3 (0.1-1.0); Monocytes % 4.9 % (1.7-9.3); Neutrophils # 6.5 K/mm3 (1.8-7.8); Neutrophils % 67.9 % (37.0-80.0); Platelet Count 401 K/mm3 (142-424); Red Cell Distribution Width 12.9 % (11.5-17.5); White Blood Count 9.6 K/mm3 (4.8-10.8)
[2023-01-16 14:40] LABS: Chloride 95 mmol/L (98-107); Potassium 3.7 mmoL/L (3.5-5.1); Sodium 131 mmol/L (136-145)
[2023-01-16 14:42] LABS: Alanine Aminotransferase 25 U/L (12-78); Aspartate Amino Transferase 34 U/L (14-36); Blood Urea Nitrogen 14 mg/dl (7-17); Creatinine Clearance Estimated 54 mL/min (50-200); Estimated Glomerular Filt Rate 96 ml/min (>60); GFR (African American) 116 ML/MIN (>60)
[2023-01-16 14:43] LABS: Albumin Level 4.2 g/dl (3.5-5.0); Albumin/Globulin Ratio 1.3 (1.1-1.8); Alkaline Phosphatase 66 U/L (38-126); Anion Gap 9.7 mEq/L (5-15); Bilirubin,Total 0.8 mg/dl (0.2-1.3); Calcium 9.5 mg/dl (8.4-10.2); Carbon Dioxide 30 mmol/L (22.0-30.0); Globulin 3.2 g/dL (1.3-3.2); Glucose 100 mg/dl (74-100); Total Protein,Serum 7.4 g/dl (6.3-8.2)
[2023-01-16 15:07] LABS: NT Pro Brain Natriuretic Pep. 177 pg/mL (0-450)
[2023-01-16 15:09] LABS: Troponin I < 0.01 ng/ml (0.00-0.034)
--- NOTE | 2023-01-16 15:12 | PC.NURSE ---
PATIENT ASSISTED TO BR WITH NO PROBLEMS, BP ELEVATED RN AWARE
[2023-01-16 15:30] VITALS: BP 170/78; PULSE 72; RESP 13; O2SAT 99
[2023-01-16 15:50] VITALS: BP 170/78; PULSE 72; RESP 14; TEMP 36.6; O2SAT 99
== END 2023-01-16 15:50 | disposition home or self-care (01) ==
PROVIDERS: Emergency Provider Emergency Medicine; PCP Emergency Medicine
DX: I10 Essential (primary) hypertension (principal); I25.10 Atherosclerotic heart disease of native coronary artery without angina pectoris; E78.5 Hyperlipidemia, unspecified
CPT/HCPCS: 78451; 78452; 80053; 83880; 84484; 85025; 96374; 99285; A9502

== ENCOUNTER 2023-01-20 07:53 | Day surgery (SDC) | payer MEDICARE, SELFPAY ==
[2023-01-20] VITALS (12 sets, daily range): BP systolic 108–180; BP diastolic 57–91; PULSE 60–84; RESP 16–20; O2SAT 91–100; BMI 26.7
--- NOTE | 2023-01-20 07:07 | IR_ITS ---
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 COMPLICATIONS None Estimated Blood Loss: Less than 10 ML TECHNIQUE One percent lidocaine used to anesthetize the right anterior aspect of the wrist. The right radial artery was accessed via the Seldinger technique. A 6 Divehi sheath was placed in the right radial artery. 150 mg magnesium sulfate, 800 mcg of nitroglycerin, 1mg Lidocaine and 5000 U Heparin were given through the arterial sheath. The papa catheter was also used to perform left heart catheterization, left ventriculogram and selective coronary angiogram. The same catheter was used to perform bilateral selective renal angiography at the end of the procedure the sheath was removed good hemostasis was achieved using Traclet band, patient was transferred to the postop holding area in stable condition. ANGIOGRAPHIC RESULTS The left main artery Normal The left anterior descending artery Mild diffuse 10 to 20% luminal regularities The circumflex artery Mild diffuse 10 to 20% luminal irregularities The right coronary artery Large dominant with mild 10 to 20% diffuse luminal irregularities The MCKEON ventriculogram reveals Hyperdynamic at 75 to 80% The left ventricular end-diastolic pressure 25 mmHg Left renal artery singular with mild luminal irregularities Right renal artery singular with mild luminal irregularities IMPRESSION Nonocclusive coronary artery disease Hyperdynamic ventricle consistent with hypertensive heart disease Elevated LVEDP consistent with hypertensive heart disease and diastolic dysfunction Widely patent renal arteries Patient's symptoms stem from hypertensive heart disease and hyperdynamic ventricle PLAN 1. Aggressive medical management for hypertensive heart disease 2. Consider verapamil or diltiazem combined with beta-blockers 3. STEFFANY inhibitor should also be beneficial 4. Risk factor modification Electronically signed by : Manuel Gaytan MD 01/20/2023 09:13:24
== END 2023-01-20 12:08 | disposition home or self-care (01) ==
PROVIDERS: PCP Emergency Medicine; Visit Provider Internal Medicine
DX: E78.5 Hyperlipidemia, unspecified (principal); I11.9 Hypertensive heart disease without heart failure; I25.118 Atherosclerotic heart disease of native coronary artery with other forms of angina pectoris; R06.00 Dyspnea, unspecified; R94.31 Abnormal electrocardiogram [ECG] [EKG]; Z79.899 Other long term (current) drug therapy; I70.1 Atherosclerosis of renal artery; I77.1 Stricture of artery
CPT/HCPCS: 36252; 93458; 99152; C1725; C1769; J1644; Q9967

== ENCOUNTER → 2023-01-26 10:05 | Outpatient (CLI) | payer MEDICARE, SELFPAY ==
--- NOTE | 2023-01-26 10:07 | CA_ITS ---
APPROVED REPORT EXAM: Comprehensive 2D, Doppler, and color-flow Echocardiogram Lens Assistant: AMISHA Quintanilla, RVS Ht: 5 ft 7 in Wt: 171lbs BSA: 1.89 HR: 60 bpm BP: 163/73 mmHg Indications: HTN, HLD, MURMUR, MARTINEZ, Abn EKG 2D Dimensions IVSd 0.83 cm LVEF (Visual) 57.80 % PWd 0.79 cm LA Volume 40.80 mL LVDd 4.36 cm LA Volume Index 21.00 mL/m2 (M/F) 16-34 LVDs 3.04 cm Aortic Root 3.48 cm Left Atrium 2.88 cm LVOT 2.06 cm (M/F) 1.5-2.5 M-Mode Dimensions RVDd 2.22 cm (0.9-2.6) LA Diam 3.33 cm (1.9-4.0) LVDd 4.71 cm (3.5-5.7) Ao Diam 2.98 cm (2.0-3.7) LVDs 2.83 cm (3.5-5.7) IVSd 0.81 cm (0.6-1.1) PWd 0.84 cm (0.6-1.1) EF (Teich) 70.60% EPSs 0.10 cm FS 39.90% EDV (Teich) 102.90 mL TAPSE 2.58 (<1.7) ESV (Teich) 30.30 mL LV Diastology E Decel Time 167.00 (160-240 msec) E/A Ratio 1.67 MED E' 11.60 (< 7 cm/sec) MED A' 9.70 cm/s E'/MED E' Ratio 7.16 (>14) LAT E' 7.80 (<10 cm/sec) LAT A' 9.20 cm/s E/LAT E' Ratio 10.64 (>14) Aortic Valve LVOT Max 83.00 (70-110 cm/s) LVOT VTI 20.18 cm AoV Peak Bryan. 118.00 (50-130 cm/s) AO Peak GR. 5.60 mmHg AO Mean GR. 2.80 (<5 mmHg) AO VTI 27.90 (18-25 cm) SEMAJ (VTI) 2.41 (2.5-4.5 cm2) Mitral Valve MV A Velocity 50.00 (40-130 cm/s) E/A Ratio 1.67 MV Decel. Time 167.00 (160-240 ms) MV Mean Gr. 0.80 (<2mmHg) MV PHT 73.00 ms Pulmonary Valve PV Peak Velocity 61.00 (50-150 cm/s) Tricuspid Valve TR P. Velocity 240.00 cm/s RAP Estimate 10.00 mmHg RVSP 33.00 mmHg Left Ventricle The left ventricle is normal size. The left ventricular systolic function is normal. The left ventricular ejection fraction is within the normal range. There is increased LV wall thickness. There is proximal septal thickening. There is normal LV segmental wall motion. Diastolic function is normal. LVEF is 60%. Right Ventricle The right ventricle is normal size. The right ventricular systolic function is normal. Atria The left atrium size is normal. The right atrium size is normal. Aortic Valve The aortic valve is mildly thickened. There is no aortic valvular stenosis. Trace aortic regurgitation. Mitral Valve The mitral valve is mildly calcified. The mitral valve leaflets possibly have rheumatic changes. No evidence of diastolic doming. No evidence of mitral valve stenosis. Mean MV gradient is 1 mmHg. Mild mitral regurgitation. Tricuspid Valve The tricuspid valve leaflets are thin and pliable. There is no tricuspid valve stenosis. Trace tricuspid regurgitation. RVSP is 15 mmHg + RA pressure Pulmonic Valve The pulmonary valve is normal in structure. Mild pulmonic regurgitation. Great Vessels The aortic root is normal in size. IVC is normal in size. Collapsibility of IVC is not evaluated in this study. Pericardium There is no pericardial effusion. Other Information Study Quality: Fair Conclusion Normal biventricular systolic function. Mildly thickened MV leaflets with possible rheumatic appearance. Mild MR. No MS. Electronically signed by : Jessica Melgoza, 01/27/2023 15:52:36
== END ==
PROVIDERS: PCP Emergency Medicine; Visit Provider Emergency Medicine
DX: I25.10 Atherosclerotic heart disease of native coronary artery without angina pectoris (principal)
CPT/HCPCS: 93306

== ENCOUNTER → 2023-01-31 07:41 | Outpatient (CLI) | payer MEDICARE, SELFPAY ==
[2023-01-31 08:46] LABS: Alanine Aminotransferase 20 U/L (12-78); Alkaline Phosphatase 65 U/L (38-126); Aspartate Amino Transferase 23 U/L (14-36); Bilirubin,Indirect 0.5 mg/dL (0.0-0.9); Bilirubin,Total 0.5 mg/dl (0.2-1.3); Bilirubin,Unconjugated 0.8 mg/dL (0.0-1.1); Chol/HDL Ratio 4.1 (1-3.5); Cholesterol 209 mg/dl (140-200); HDL Cholesterol 51 mg/dl (40-60); Total Protein,Serum 6.6 g/dl (6.3-8.2); Triglycerides 213 mg/dl (30-150); VLDL Cholesterol 43 mg/dL (0-40)
[2023-01-31 08:57] LABS: Direct LDL Cholesterol 115.07 mg/dL (100-129)
== END ==
PROVIDERS: PCP Emergency Medicine; Visit Provider Internal Medicine
DX: E78.5 Hyperlipidemia, unspecified (principal); I11.9 Hypertensive heart disease without heart failure; I25.10 Atherosclerotic heart disease of native coronary artery without angina pectoris; R94.31 Abnormal electrocardiogram [ECG] [EKG]
CPT/HCPCS: 36415; 80061; 80076

== ENCOUNTER → 2023-02-01 10:29 | Outpatient (CLI) | payer MEDICARE, SELFPAY ==
--- NOTE | 2023-02-01 10:31 | CA_ITS ---
FINAL REPORT TECHNIQUE: Color Doppler, duplex Doppler and kirkland scale sonography of the bilateral neck vasculature was performed. Velocities were measured in the carotid arteries. Stenosis evaluation based on velocity criteria. CLINICAL HISTORY: DIZZINESS,HTN COMPARISON: None FINDINGS: The peak systolic velocity of the right common carotid artery is 104 cm/sec and internal carotid artery 135 6 cm/sec. The diastolic velocity in the internal carotid artery is 33 cm/sec. The ICA/CCA ratio is 1.67. Visually, a small amount of plaque is seen. These findings are consistent with less than 50% stenosis. The external carotid artery is patent. The right vertebral artery is patent with antegrade flow. The peak systolic velocity of the left common carotid artery is 111 cm/sec and internal carotid artery 109 cm/sec. The diastolic velocity in the internal carotid artery is 25 cm/sec. The ICA/CCA ratio is 1.04. Visually, a small amount of plaque is seen. These findings are consistent with less than 50% stenosis. The external carotid artery is patent. The left vertebral artery is patent with antegrade flow. IMPRESSION: No evidence of significant carotid stenosis. Bilateral patent vertebral arteries. If indicated, CTA or MRA could further evaluate. Reviewed, Interpreted and Dictated by Carrington Adams III, MD Transcribed by Kalpana Turcios Authenticated and [facility]
== END ==
PROVIDERS: PCP Emergency Medicine; Visit Provider Internal Medicine
DX: E78.5 Hyperlipidemia, unspecified (principal); I11.9 Hypertensive heart disease without heart failure; I25.10 Atherosclerotic heart disease of native coronary artery without angina pectoris; R42 Dizziness and giddiness; R94.31 Abnormal electrocardiogram [ECG] [EKG]
CPT/HCPCS: 93880

== ENCOUNTER 2023-09-21 10:46 | Outpatient (CLI) | payer MEDICARE, SELFPAY ==
[2023-09-22 10:39] LABS: Microscopic, Urine URINE MICROSCOPIC (MICROSCOPIC)
[2023-09-22 10:48] LABS: Basophils # 0.1 K/mm3 (0-0.2); Basophils % 1.4 % (0.1-2.0); Eosinophils # 0.2 K/mm3 (0.0-0.4); Eosinophils % 2.6 % (0.1-12.0); Hematocrit 48.6 % (37.0-47.0); Hemoglobin 15.9 g/dL (12.2-16.2); Lymphocytes # 2.2 K/mm3 (0.7-4.5); Lymphocytes % 30.1 % (10-50); Mean Corpuscular HGB Conc 32.8 g/dL (31.8-35.4); Mean Corpuscular Hemoglobin 29.1 pg (27.0-31.2); Mean Corpuscular Volume 88.6 fl (81-99); Mean Platelet Volume 8.3 fl (7.4-10.4); Monocytes # 0.4 K/mm3 (0.1-1.0); Monocytes % 5.8 % (1.7-9.3); Neutrophils # 4.4 K/mm3 (1.8-7.8); Neutrophils % 60.1 % (37.0-80.0); Platelet Count 363 K/mm3 (142-424); Red Blood Count 5.48 M/mm3 (4.20-5.40); Red Cell Distribution Width 13.3 % (11.5-17.5); White Blood Count 7.4 K/mm3 (4.8-10.8)
[2023-09-22 10:53] LABS: Appearance,Urine SL CLOUDY (Clear); Bilirubin,Urine Negative (Negative); Blood, Urine TRACE-I (Negative); Color,Urine YELLOW (Yellow); Glucose,Urine (UA) Negative (Negative); Ketones,Urine Negative (Negative); Leukocyte Esterase,Urine TRACE (Negative); Nitrate,Urine Negative (Negative); PH,Urine 7.5 (5.0-8.5); Protein,Urine Negative (Negative)
[2023-09-22 11:07] LABS: Bacteria,Urine 1+ /lpf; RBC,Urine Occasional #/hpf (0-3)
[2023-09-22 11:18] LABS: Alanine Aminotransferase 19 U/L (12-78); Albumin Level 4.4 g/dl (3.5-5.0); Albumin/Globulin Ratio 1.6 (1.1-1.8); Alkaline Phosphatase 70 U/L (38-126); Aspartate Amino Transferase 30 U/L (14-36); Blood Urea Nitrogen 16 mg/dl (7-17); Calcium 9.7 mg/dl (8.4-10.2); Carbon Dioxide 30 mmol/L (22.0-30.0); Chloride 96 mmol/L (98-107); Chol/HDL Ratio 5.3 (1-3.5); Cholesterol 269 mg/dl (140-200); Estimated Glomerular Filt Rate 69 ml/min (>60); GFR (African American) 83 ML/MIN (>60); Globulin 2.7 g/dL (1.3-3.2); Glucose 104 mg/dl (74-100); HDL Cholesterol 51 mg/dl (40-60); Magnesium 1.9 mg/dl (1.6-2.3); Phosphorous 3.8 mg/dl (2.5-4.5); Sodium 133 mmol/L (136-145); Total Protein,Serum 7.1 g/dl (6.3-8.2); Triglycerides 218 mg/dl (30-150); VLDL Cholesterol 44 mg/dL (0-40)
[2023-09-22 11:19] LABS: Hemoglobin A1C 5.9 % (4.0-6.0)
[2023-09-22 11:33] LABS: Free T4 (Free Thyroxine) 1.33 ng/dl (0.78-2.19)
[2023-09-22 11:37] LABS: 25-OH Vitamin D, Total 25.1 ng/mL (30-100)
[2023-09-22 11:41] LABS: Iron 134 ug/dL (37-170)
[2023-09-22 11:49] LABS: Thyroid Stimulating Hormone 2.52 uIU/mL (0.465-4.68)
[2023-09-22 11:51] LABS: Total Iron Binding Capacity 323 ug/dL (265-497)
[2023-09-22 12:08] LABS: Vitamin B12 319 pg/mL (239-931)
[2023-09-22 12:17] LABS: Ferritin 124 ng/ml (11.1-264)
== END 2023-09-21 23:59 ==
LOC: LAB.DROPOF 09-22 10:47
PROVIDERS: PCP Nurse Practitioner Family; Visit Provider Nurse Practitioner Family
DX: E11.9 Type 2 diabetes mellitus without complications (principal); R53.83 Other fatigue; M81.0 Age-related osteoporosis without current pathological fracture; B96.89 Other specified bacterial agents as the cause of diseases classified elsewhere; E78.5 Hyperlipidemia, unspecified; I10 Essential (primary) hypertension; Z79.899 Other long term (current) drug therapy
CPT/HCPCS: 80053; 80061; 81001; 82306; 82607; 82728; 83036; 83540; 83550; 83735; 84100; 84156; 84439; 84443; 85025; 87086

== ENCOUNTER 2024-04-26 14:50 | Outpatient (CLI) | payer MEDICARE, SELFPAY ==
--- NOTE | 2024-04-26 14:55 | XR_ITS ---
FINAL REPORT CLINICAL HISTORY: LT HIP PAIN COMPARISON: None FINDINGS: LEFT HIP: Two views of the left hip, with an AP view of the pelvis, demonstrate no acute fracture or dislocation. There are mild degenerative changes of both hips. The visualized bony structures are well aligned. There are mild vascular calcifications. No acute soft tissue abnormality is seen. IMPRESSION: Mild degenerative changes without acute bony abnormality. Reviewed, Interpreted and Dictated by Carrington Adams III, MD Transcribed by Bettie Shaikh Authenticated and [facility]
--- NOTE | 2024-04-26 14:55 | XR_ITS ---
FINAL REPORT CLINICAL HISTORY: LOWER BACK PAIN WITH LT SIDE SCIATICA COMPARISON: None FINDINGS: LUMBOSACRAL SPINE SERIES Five views of the lumbosacral spine were obtained. There is no fracture present. There is no malalignment. There are moderate and severe degenerative changes. Multilevel osteophytes are noted. There are vascular calcifications. IMPRESSION: Moderate and severe degenerative changes without acute process. Reviewed, Interpreted and Dictated by Carrington Adams III, MD Transcribed by Bettie Shaikh Authenticated and [facility]
== END 2024-04-26 23:59 | disposition home or self-care (01) ==
LOC: RAD 14:53
PROVIDERS: PCP Nurse Practitioner Family; Visit Provider Nurse Practitioner Family
DX: M25.552 Pain in left hip (principal); M54.32 Sciatica, left side
CPT/HCPCS: 72110; 73502

== ENCOUNTER 2024-05-05 19:43 | Emergency (ER) | payer MEDICARE, SELFPAY ==
--- NOTE | 2024-05-05 19:54 | CT_ITS ---
PROCEDURE INFORMATION: Exam: CT Lumbar Spine Without Contrast Exam date and time: 05/05/2024 8:07 PM Age: 83 years old Clinical indication: Injury or trauma; Fall; Blunt trauma (contusions or hematomas); Additional info: Low back pain rad down L leg TECHNIQUE: Imaging protocol: Computed tomography of the lumbar spine without contrast. Total images: 346 Radiation optimization: All CT scans at this facility use at least one of these dose optimization techniques: automated exposure control; mA and/or kV adjustment per patient size (includes targeted exams where dose is matched to clinical indication); or iterative reconstruction. COMPARISON: CR XR HIP LT 2-3V W/PELVIS 04/26/2024 3:00 PM FINDINGS: Bones/joints: Osteopenia. Straightened lumbar lordosis. Minor lumbar levocurvature. Five non rib-bearing lumbar vertebral segments. Vertebral body height and alignment is preserved. Severe degenerative disc disease L4-L5 and L5-S1 with near complete loss of disc space. Mild degenerative disc disease remainder of the lumbar levels. The posterior elements are intact. Advanced degenerate facet joint spondylosis on the left at L4-L5 and L5-S1 with secondary neural foraminal encroachments. Severe osseous neural foraminal encroachment on the left at L5-S1. [id number] neural foraminal encroachments bilaterally at L4-L5 and on the right at L5-S1. Additional mild bilateral neural foraminal encroachments at L3-L4. No concerning bone lesions. Moderate acquired spinal canal stenosis at L3-L4 secondary to degenerative changes. Severe acquired lumbar spinal canal stenosis at L4-L5. Mild acquired spinal canal stenosis L5-S1. Mild degenerative changes bilateral SI joints. Gallbladder and biliary ducts: Status post cholecystectomy. Spleen: Calcified splenic granuloma. Kidneys and ureters: Exophytic lower pole left renal cortical cyst. Vasculature: Severely atherosclerotic nonaneurysmal abdominal aorta. Lymph nodes: No retroperitoneal lymphadenopathy. Soft tissues: No paraspinal mass, fluid collection, or edema. IMPRESSION: 1. No acute lumbar fracture or traumatic subluxation. 2. Severe degenerative disc disease L4-L5 and L5-S1. 3. Advanced degenerate facet joint spondylosis on the left at L4-L5 and L5-S1. 4. Multilevel bilateral neural foraminal encroachments 5. Severe acquired spinal canal stenosis L4-L5. 6. Additional chronic findings. COMMENTS: Consistent with the [place] [employer]'s Incidental Findings Committee white paper (J Am Christain Radiol 2018): Any incidental renal lesion less than 1 cm or classified as too small to characterize, or any incidental cystic renal lesion characterized as simple-appearing, is likely benign. No follow-up imaging is recommended for these lesions per consensus recommendations based on imaging criteria.
--- NOTE | 2024-05-05 19:54 | CT_ITS ---
PROCEDURE INFORMATION: Exam: CT Pelvis Without Contrast, Skeleton Exam date and time: 05/05/2024 8:09 PM Age: 83 years old Clinical indication: Injury or trauma; Fall; Blunt trauma (contusions or hematomas); Left; Hip; Additional info: Low back pain, L hip pain TECHNIQUE: Imaging protocol: Computed tomography of the pelvis without contrast. Exam focused on the skeleton. Total images: 921 Radiation optimization: All CT scans at this facility use at least one of these dose optimization techniques: automated exposure control; mA and/or kV adjustment per patient size (includes targeted exams where dose is matched to clinical indication); or iterative reconstruction. COMPARISON: CR XR HIP LT 2-3V W/PELVIS 04/26/2024 3:00 PM FINDINGS: Intestine: Included small bowel is unremarkable. Mild colonic diverticulosis without acute diverticulitis. Short segmental circumferential proximal rectal wall thickening from incomplete distension versus proctitis or neoplasm. Recommend direct visualization. Axial image 82 series 4. Appendix: Nonvisualized appendix. Vasculature: Numerous pelvic phleboliths. Reproductive: Status post hysterectomy. No pelvic mass. Urinary bladder: Partially collapsed unremarkable bladder. Bones/joints: Osteopenia. Moderate symmetric degenerative changes bilateral hips. No acute pelvic or hip fracture. No joint dislocation. Chronic osteitis of the pubic symphysis. Mild degenerative changes bilateral SI joints. Sacrococcygeal alignment is preserved. Severe degenerative disc disease L4-L5 and L5-S1 with advanced facet joint spondylosis. Soft tissues: Unremarkable. IMPRESSION: 1. No acute pelvic or hip fracture. 2. Symmetric moderate degenerative changes bilateral hips. 3. Short segmental circumferential rectal wall thickening. Differential includes peristalsis, proctitis, and neoplasm. Recommend follow-up nonemergent direct visualization. 4. Mild colonic diverticulosis. 5. Status post hysterectomy.
[2024-05-05 19:55] VITALS: BP 198/88; PULSE 104; RESP 18; TEMP 36.7; O2SAT 97; BMI 26.9
--- NOTE | 2024-05-05 20:02 | XR_ITS ---
PROCEDURE INFORMATION: Exam: XR Left Femur Exam date and time: 05/05/2024 8:03 PM Age: 83 years old Clinical indication: Injury or trauma; Fall; Blunt trauma; Patient HX: Fell off of step stool 2 months ago. Pain in left hip. TECHNIQUE: Imaging protocol: Radiologic exam of the left femur. Views: 2 views. Total images: 4 COMPARISON: CR XR HIP LT 2-3V W/PELVIS 04/26/2024 3:00 PM FINDINGS: Bones/joints: Osteopenia. No acute fracture or joint dislocation. Mild to moderate degenerative change left hip. Femoral head and neck contour is preserved. Chronic osteitis of the pubic symphysis. Included left hemipelvis is unremarkable. 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 Patellar enthesophyte at the quadriceps tendon insertion Soft tissues: Unremarkable soft tissues. IMPRESSION: 1. Negative left femur. 2. Chronic findings.
--- NOTE | 2024-05-05 20:13 | ED_ITS ---
Discharge Plan Disposition Patient Disposition: Home, Self-Care Condition: Good Prescriptions Prescriptions: New gabapentin 300 mg capsule 300 mg PO Q12H PRN (Reason: pain) Qty: 12 0RF prednisone 20 mg tablet 40 mg PO DAILY 3 Days Qty: 6 0RF No Action mecobalamin (vitamin B12) 1,000 mcg tablet,chewable 1,000 mcg PO DAILY hydrochlorothiazide 50 mg tablet 50 mg PO DAILY cholecalciferol (vitamin D3) 50 mcg (2,000 unit) capsule 50 mcg PO DAILY Qty: 90 3RF irbesartan 150 mg tablet 75 mg PO DAILY cyclobenzaprine 5 mg tablet 5 mg PO HS PRN (Reason: muscle spasm) Qty: 30 0RF meloxicam 15 mg tablet 15 mg PO DAILY Qty: 30 2RF tramadol 50 mg tablet 50 mg PO Q4-6H PRN (Reason: pain) Qty: 30 0RF lidocaine [Lidoderm] 5 % adhesive patch,medicated 1 patch topical DAILY Qty: 30 1RF Rx Instructions: leave on most painful area for up to 12 hrs levothyroxine 112 mcg tablet 112 mcg PO DAILY Qty: 90 3RF estradiol 1 mg tablet 1 mg PO DAILY Qty: 90 3RF Referrals Follow up/Referrals: Nicolas Chamorro MD [Staff Physician] - See instructions Niki Ribera APRN [Primary Care Provider] - See instructions Activity Restrictions/Add. Instructions Additional Instructions/Restrictions: You were evaluated in the emergency department today. I am providing you with prescriptions for gabapentin to treat nerve related pain as well as for prednisone. Please use caution when taking gabapentin, especially in combination with tramadol, as both can be very sedating. Do not drive or operate heavy machinery while taking these medications. Please continue otherwise with your regimen at home as prescribed by your primary care provider. I feel that evaluation by a integrated marketing specialist or pain management would be beneficial to you. I am providing with information for Dr. Chamorro with pain management. Return to the emergency department for new or worsening symptoms. Clinical Impressions Clinical Impression: Multilevel neural foraminal stenosis, Acute lumbar radiculopathy Instructions Patient Instructions: DI for Sciatica, DI for Lumbar Radiculopathy Print Language Print Language: Cameroonian Discharge ED Provider: Laurita Payne General Adult HPI General Chief complaint: PAIN Stated complaint: Left hip pain,no injury Time Seen by Provider: 05/05/24 19:54 Mode of Arrival: Ambulatory Source of Information: Patient Limitations: No Limitations Description of Symptoms (Recalled from ER Triage Doc. by RN): pt states she slid off a step stool about 2months ago. pt was then having pain in her buttocks. over the last 3wks her pain has increased and radiates distally from her buttocks to her entire leg. pt reports her pain is 4/10, sharp and constant without PRN meds. pt states she is currently being treated by her pcp with steroids, lidocaine patches, tramadol and has taken torodol. pt states the medications numb the pain some but it keeps returning. History of Present Illness HPI narrative: This patient is a 83-year-old female with a history of chronic back issues status post prior spine surgery, hypertension, hyperlipidemia, and hypothyroidism presenting to the emergency department for evaluation with concern for left buttock pain radiating down the posterior aspect of her left leg. She notes that she slipped and fell off of a stepstool about 2 months ago, and then she did have some pain in her buttocks. Over the last several weeks, the pain is increased and has become more persistent. She has been following with her primary care provider for this who has tried multiple different medications, including steroids, anti-inflammatories, lidocaine patches, and tramadol. Patient is that she is taking medications [id number] but the pain keeps coming back. It is worse in her left buttock. She denies any fevers, chills, numbness, tingling, saddle anesthesia, urinary incontinence, urinary retention, or fecal incontinence. She is still able to walk, though certain movements make the pain worse. Related Data Home Medications ?Medication ?Instructions ?Recorded ?Confirmed hydrochlorothiazide 50 mg tablet 50 mg PO DAILY 09/21/23 04/26/24 mecobalamin (vitamin B12) 1,000 1,000 mcg PO DAILY 11/14/23 04/26/24 mcg chewable tablet irbesartan 150 mg tablet 75 mg PO DAILY 03/14/24 04/26/24 Previous Rx's ?Medication ?Instructions ?Recorded cholecalciferol (vitamin D3) 50 50 mcg PO DAILY #90 caps 10/17/23 mcg (2,000 unit) capsule levothyroxine 112 mcg tablet 112 mcg PO DAILY #90 tabs 10/30/23 estradiol 1 mg tablet 1 mg PO DAILY #90 tabs 01/10/24 cyclobenzaprine 5 mg tablet 5 mg PO HS PRN muscle spasm #30 03/14/24 tabs lidocaine 5 % topical patch 1 patch topical DAILY #30 ea 04/26/24 (Lidoderm) meloxicam 15 mg tablet 15 mg PO DAILY #30 tabs 04/26/24 tramadol 50 mg tablet 50 mg PO Q4-6H PRN pain #30 tabs 04/26/24 gabapentin 300 mg capsule 300 mg PO Q12H PRN pain #12 caps 05/05/24 prednisone 20 mg tablet 40 mg (2 x 20 mg) PO DAILY 3 days 05/05/24 #6 tabs Allergies Allergy/AdvReac Type Severity Reaction Status Date / Time codeine Allergy Intermediate I-HIVES Verified 04/26/24 14:24 Penicillins Allergy Intermediate I-HIVES Verified 04/26/24 14:24 sertraline AdvReac Intermediate Nausea Verified 04/26/24 14:24 lisinopril AdvReac Cough Verified 04/26/24 14:24 PFSH PFS Disclaimer: The information contained in this section may have been updated after the patient was seen, as this information can be updated by other users. Medical History Encounter for screening for diabetes mellitus Establishing care with new doctor, encounter for Asymptomatic hypertension Superficial laceration Laceration Cervical strain, acute Chondrocalcinosis of right knee Chest pain Radicular pain in left arm Left sided abdominal pain Left shoulder pain Dizziness Lightheadedness Edema Right knee sprain Knee pain Hyperlipidemia Hypertension Hypertension History of left heart catheterization (LHC) Surgical History H/O bilateral salpingo-oophorectomy H/O: hysterectomy Family History Other Family history of hypertension Social History Smoking Status: Never smoker second hand exposure: No alcohol intake: never substance use type: denies use current occupational status: retired Travel in the last 8 weeks: None household members: spouse and family housing: house current occupational exposures/hazards: No Other Medical History Have you received the Flu Vaccine for this season: Yes Have you received the Pneumonia Vaccine: No ROS Obtained: Yes All systems reviewed & no additional complaints except as documented Physical Exam General General appearance: alert and in no apparent distress Head Head exam: atraumatic and normocephalic Eye Eye exam: Present normal appearance, PERRL and EOMI ENT ENT exam: Present normal exam, normal oropharynx, mucous membranes moist and normal external ear exam Neck Neck exam: Present normal inspection, full ROM and trachea midline; Absent tenderness Chest Chest inspection: Present normal inspection and symmetric chest wall rise; Absent tenderness Respiratory Respiratory exam: Present normal lung sounds bilaterally; Absent respiratory distress, wheezes, stridor or accessory muscle use Cardiovascular Cardiovascular exam: Present regular rate and normal rhythm Abdominal Exam Abdominal exam: Present soft; Absent distention, tenderness or guarding Extremities Exam Extremities exam: Present full ROM, tenderness (Left gluteal muscles), normal capillary refill and other (All compartment soft, neurovascularly intact distally.); Absent edema Back Exam Back exam: Present full ROM, tenderness (Left buttock), muscle spasm (Left buttock) and straight leg raise (L); Absent vertebral tenderness Neurological Exam Neurological exam: Present alert, oriented X3, CN II-XII intact and normal gait; Absent motor sensory deficit Psychiatric Psychiatric exam: Present normal affect and normal mood Skin Skin exam: Present warm and dry Medical Decision Making Medical Records Medical records reviewed: Yes I reviewed the patient's medical records. Screening: Per USPSTF and CDC recommendations, given the prevalence of disease in our region, it is our hospital?s policy to screen for HIV and viral Hepatitis for all patients aged 18 and over and those with ongoing risk factors. Rafi Inquiry Pt receiving controlled substance: No Vital Signs: 05/05/24 19:55 05/05/24 22:37 Temperature 98.1 F 98.0 F Temperature Source Oral Oral Pulse Rate 74 Pulse Rate [Left] 104 H Respiratory Rate 18 18 Blood Pressure 185/85 H Blood Pressure [Right Arm] 198/88 H Blood Pressure Mean [Right Arm] 124 Blood Pressure Source [Right Arm] Automatic Cuff Blood Pressure Position [Right Arm] Sitting 02 Sat by Pulse Oximetry 97 Oxygen Delivery Method Room Air Room Air Lab Data Lab results reviewed: Yes I reviewed the patient's lab results. Lab Results 05/05/24 20:30: WBC 7.3, RBC 5.13, Hgb 15.0, Hct 43.6, MCV 84.8, MCH 29.3, MCHC 34.5, RDW 13.3, Plt Count 323, MPV 7.7, Neut % (Auto) 49.5, Lymph % (Auto) 39.8, [place] % (Auto) 6.8, Eos % (Auto) 2.9, Baso % (Auto) 1.1, Neut # (Auto) 3.6, Lymph # (Auto) 2.9, [place] # (Auto) 0.5, Eos # (Auto) 0.2, Baso # (Auto) 0.1, Sodium 131 L, Potassium 3.9, Chloride 97 L, Carbon Dioxide 29, Anion Gap 8.9, BUN 14, Creatinine 0.80, Estimated Creat Clear 52, Estimated GFR 69, Est GFR ( Amer) 83, Glucose 124 H, Calcium 9.2, Total Bilirubin 0.6, AST 24, ALT 19, Alkaline Phosphatase 67, Total Protein 7.0, Albumin 4.1, Globulin 2.9, Albumin/Globulin Ratio 1.4, HIV 1&2 Antibody Rapid Nonreactive 05/05/24 20:30 05/05/24 20:30 Orders (Tests/Meds): ED MEDICATIONS Discontinued Medications Generic Name Dose Route Start Last Admin Trade Name Freq PRN Reason Stop Dose Admin Gabapentin 300 mg 05/05/24 20:01 05/05/24 20:33 Gabapentin 300mg Capsule PO 05/05/24 20:02 300 mg ONCE ONE Administration Ketorolac Tromethamine 30 mg 05/05/24 20:01 05/05/24 20:25 Ketorolac 30mg/Ml Vial IM 05/05/24 20:02 Not Given ONCE ONE Ketorolac Tromethamine 15 mg 05/05/24 20:03 05/05/24 20:34 Ketorolac 30mg/Ml Vial IV 05/05/24 20:04 15 mg ONCE ONE Administration ORDERS Category Date Time Status CT bony pelvis Stat Cat Scan 05/05/24 19:[address] lumbar spine wo con Stat Cat Scan 05/05/24 19:54 Completed Femur XR left 2 views [XR femur LT 2V] Stat Exams 05/05/24 20:02 Completed Complete Blood Count Auto Diff Stat Lab 05/05/24 20:30 Completed Comprehensive Metabolic Panel Stat Lab 05/05/24 20:30 Completed HIV (1&2) Antibody Rapid Stat Lab 05/05/24 20:30 Completed Hep C Ab with Reflex to RNA Stat Lab 05/05/24 20:30 Received Medical Decision Narrative: In summary, this patient is a 83-year-old female presenting to the Emergency Department for evaluation of left buttock pain radiating down her left leg. Differential diagnoses considered include but are not limited to piriformis syndrome, sciatica, lumbar disc herniation, fracture, musculoskeletal strain/sprain. Ruling out the most morbid conditions drove assessment. It should be noted patient's history includes hypertension, hyperlipidemia, hypothyroidism which may not be at goal therapy. This complicates all aspects of care by increasing patient's risk for morbidity. I reviewed patient's past medical records and noted previous evaluations by her primary care provider for these issues. I also noted prior x-rays of her lumbar spine and left hip. She has degenerative change without obvious fracture. On exam, the patient is able to ambulate without significant issue. She does have tenderness palpation of her left buttock and referred pain down the posterior aspect of her left leg, which I feel is consistent with muscle spasm causing sciatica, possibly piriformis syndrome. Workup included CT lumbar spine, CT bony pelvis, x-rays of the left hip, femur. Patient was given oral gabapentin and IV Toradol for symptomatic improvement of pain. I independently interpreted CT and x-ray prior to the radiologist read and noted no acute fracture but that she does have significant degenerative change. Please see their read for final interpretation. They noted neuroforaminal stenosis, especially on the left. Labs were obtained that demonstrated reassuring CBC and chemistry with the exception of very mild hyponatremia and hypochloremia.. On reassessment, patient had some improvement after administration of interventions above. Ultimately, I feel she does have lumbar radiculopathy with nerve pain/sciatica, so will trial her on gabapentin to see if this helps. I advised that she use caution when taking this given her age and the fact that she was prescribed tramadol by her PCP, and advised that she would not want to take them together. I also gave her instructions for supportive management and close follow-up otherwise with PT, pain management, and integrated marketing specialist as deemed appropriate by primary care. She was given strict return precautions and was discharged after all questions were answered. Critical Care Critical Care Time Critical Care Time: No
[2024-05-05] MEDS: GABAPENTIN 300MG CAPSULE 300 MG PO (20:33)
[2024-05-05] MEDS: KETOROLAC 30MG/ML VIAL 15 MG IV (20:34)
[2024-05-05 20:43] LABS: Albumin Level 4.1 g/dl (3.5-5.0); Chloride 97 mmol/L (98-107); Potassium 3.9 mmoL/L (3.5-5.1); Sodium 131 mmol/L (136-145)
[2024-05-05 20:46] LABS: Alanine Aminotransferase 19 U/L (12-78); Albumin/Globulin Ratio 1.4 (1.1-1.8); Alkaline Phosphatase 67 U/L (38-126); Anion Gap 8.9 mEq/L (5-15); Aspartate Amino Transferase 24 U/L (14-36); Bilirubin,Total 0.6 mg/dl (0.2-1.3); Blood Urea Nitrogen 14 mg/dl (7-17); Calcium 9.2 mg/dl (8.4-10.2); Carbon Dioxide 29 mmol/L (22.0-30.0); Creatinine Clearance Estimated 52 mL/min (50-200); Estimated Glomerular Filt Rate 69 ml/min (>60); GFR (African American) 83 ML/MIN (>60); Globulin 2.9 g/dL (1.3-3.2); Glucose 124 mg/dl (74-100)
[2024-05-05 20:47] LABS: Basophils # 0.1 K/mm3 (0-0.2); Basophils % 1.1 % (0.1-2.0); Eosinophils # 0.2 K/mm3 (0.0-0.4); Eosinophils % 2.9 % (0.1-12.0); Hematocrit 43.6 % (37.0-47.0); Lymphocytes # 2.9 K/mm3 (0.7-4.5); Lymphocytes % 39.8 % (10-50); Mean Corpuscular HGB Conc 34.5 g/dL (31.8-35.4); Mean Corpuscular Hemoglobin 29.3 pg (27.0-31.2); Mean Corpuscular Volume 84.8 fl (81-99); Mean Platelet Volume 7.7 fl (7.4-10.4); Monocytes # 0.5 K/mm3 (0.1-1.0); Monocytes % 6.8 % (1.7-9.3); Neutrophils # 3.6 K/mm3 (1.8-7.8); Neutrophils % 49.5 % (37.0-80.0); Platelet Count 323 K/mm3 (142-424); Red Blood Count 5.13 M/mm3 (4.20-5.40); Red Cell Distribution Width 13.3 % (11.5-17.5); White Blood Count 7.3 K/mm3 (4.8-10.8)
[2024-05-05 22:37] VITALS: BP 185/85; PULSE 74; RESP 18; TEMP 36.7; O2SAT 98
[2024-05-05 23:05] LABS: HIV (1&2) Antibody Rapid NONREACTIVE (NONREACTIVE)
[2024-05-07 08:51] LABS: HCV Ab Non Reactive (Non Reactive)
== END 2024-05-05 22:43 | disposition home or self-care (01) ==
PROVIDERS: Emergency Provider Emergency Medicine; PCP Nurse Practitioner Family
DX: M99.63 Osseous and subluxation stenosis of intervertebral foramina of lumbar region (principal); M54.16 Radiculopathy, lumbar region
CPT/HCPCS: 72131; 72192; 73552; 80053; 85025; 86803; 87389; 96372; 96374; 99284; J1885

== ENCOUNTER 2024-05-20 12:53 | Outpatient (POV) | payer MEDICARE, SELFPAY ==
--- NOTE | 2024-05-20 13:14 | A.OFFVIS_ITS ---
HPI Data of Consult Patient: new to practice Consult date: 05/20/24 Requesting Physician: Laurita Hernandez APRN Primary Care Provider: Niki Ribera APRN Consult Narrative Reason for consult: Low back pain, left hip/buttocks pain, left leg pain History of present illness: Ms. Gipson is a 83 year old female who presents today as a new patient. She is a referral from [facility]. Today she rates her pain a 8 out of 10. Patient states that a couple of months ago that she was trying to lift something and had severe pain that ran from her low back on the left side down into her buttocks and down her entire left extremity. Patient does state that since then it did improve a little however still is interfering with all activities of her daily living such as cooking and cleaning. Patient states she has always been very active and still cooks a lot however due to this pain she has not been able to do any of that and it has really stopped her in her tracks. Patient does describe it as an aching, throbbing sensation with numbness going all the way down to her foot. Patient does have a longstanding history of chronic low back pain with radicular symptoms. Patient does state that she has had a prior discectomy and then had a revision a year later. She states then at that point she ended up having to have a ruptured disc that was cleaned up. Patient states that she had had injections in the past and had even went to proceed forward with a pain pump trial. She states at that time the doctor she was seeing looked at her imaging and wanted her ovaries removed that were the only thing left remaining from a prior hysterectomy. She states she ended up having this done and the back pain completely resolved. She states overall that she has not really had any issues since up until this year. Patient states the pain is worse with any type of activity including standing, walking or getting up from a seated position. She states the pain is very intense. She has tried multiple medications including Flexeril, meloxicam, tramadol and gabapentin with some improvement however overall does not get her back to her prior activity level. She is also tried heat and ice and topicals and at home stretching exercise for longer than 12 weeks. Patient is interested in any help we may be able to provide. She does state the pain was so severe she ended up having to go to the ER a couple weeks ago. Patient does state that she had elevated blood pressure and heart rate at that visit. Patient does see cardiology on a regular basis and states that she is following up with them soon. Patient is currently managed with gabapentin 300 mg and tramadol 50 mg from outside providers. Her Rafi has been reviewed and is appropriate. CC: Laurita Hernandez APRN [facility] Disclaimer: The information contained in this section may have been updated after the patient was seen, as this information can be updated by other users. Medical History Encounter for screening for diabetes mellitus Establishing care with new doctor, encounter for Asymptomatic hypertension Superficial laceration Laceration Cervical strain, acute Chondrocalcinosis of right knee Chest pain Radicular pain in left arm Left sided abdominal pain Left shoulder pain Dizziness Lightheadedness Edema Right knee sprain Knee pain Hyperlipidemia Hypertension Hypertension History of left heart catheterization (LHC) Surgical History H/O bilateral salpingo-oophorectomy H/O: hysterectomy Family History Other Family history of hypertension Social History Smoking Status: Never smoker second hand exposure: No alcohol intake: never substance use type: denies use current occupational status: retired household members: spouse and family housing: house current occupational exposures/hazards: No Review of Systems Review of Systems Review of systems:: pertinent systems reviewed and negative unless documented below Review of systems (narrative): Review of Systems: General: No recent weight changes, no fever, no sleep disturbances Respiratory: No cough, no shortness of air, no recurring pulmonary infections Cardiovascular/peripheral vascular: No chest pain, no palpitations, no edema, no shortness of breath Gastrointestinal: No new onset incontinence, normal bowel movements reported Genitourinary: No new onset incontinence Musculoskeletal: Low back pain, left hip pain, left leg pain Psychiatric: [Normal mood/affect] Neurological: [Denies weakness in extremities], [denies balance issues] Meds Home Medications and Allergies Home Medications ?Medication ?Instructions ?Recorded ?Confirmed ?Type hydrochlorothiazide 50 mg tablet 50 mg PO DAILY 09/21/23 05/20/24 History cholecalciferol (vitamin D3) 50 50 mcg PO DAILY #90 caps 10/17/23 05/20/24 Rx mcg (2,000 unit) capsule levothyroxine 112 mcg tablet 112 mcg PO DAILY #90 tabs 10/30/23 05/20/24 Rx mecobalamin (vitamin B12) 1,000 1,000 mcg PO DAILY 11/14/23 05/20/24 History mcg chewable tablet estradiol 1 mg tablet 1 mg PO DAILY #90 tabs 01/10/24 05/20/24 Rx irbesartan 150 mg tablet 75 mg PO DAILY 03/14/24 05/20/24 History lidocaine 5 % topical patch 1 patch topical DAILY #30 ea 04/26/24 05/20/24 Rx (Lidoderm) meloxicam 15 mg tablet 15 mg PO DAILY #30 tabs 04/26/24 05/20/24 Rx tramadol 50 mg tablet 50 mg PO Q4-6H PRN pain #30 tabs 04/26/24 05/20/24 Rx gabapentin 300 mg capsule 300 mg PO Q12H PRN pain #12 caps 05/05/24 05/20/24 Rx prednisone 20 mg tablet 40 mg (2 x 20 mg) PO DAILY 3 days 05/05/24 05/20/24 Rx #6 tabs cyclobenzaprine 5 mg tablet 5 mg PO HS PRN muscle spasm #30 05/14/24 05/20/24 Rx tabs New Prescriptions to Start Prescriptions: Allergies Allergy/AdvReac Type Severity Reaction Status Date / Time codeine Allergy Intermediate I-HIVES Verified 04/26/24 14:24 Penicillins Allergy Intermediate I-HIVES Verified 04/26/24 14:24 sertraline AdvReac Intermediate Nausea Verified 04/26/24 14:24 lisinopril AdvReac Cough Verified 04/26/24 14:24 Objective Narrative: Physical Exam: General: Alert and oriented x3, no acute distress, pleasant and cooperative Lungs: Respirations even and unlabored, symmetrical chest expansion Eyes: PERRL Musculoskeletal: Flexion and extension of lumbar [spine] somewhat guarded secondary to pain, [antalgic gait noted] positive left leg raise with decreased sensation to light touch and decreased reflexes Neurological: Speech clear, no gross sensory deficit Additional findings Additional findings: COMPARISON: CR XR HIP LT 2-3V W/PELVIS 04/26/2024 3:00 PM FINDINGS: Bones/joints: Osteopenia. Straightened lumbar lordosis. Minor lumbar levocurvature. Five non rib-bearing lumbar vertebral segments. Vertebral body height and alignment is preserved. Severe degenerative disc disease L4-L5 and L5-S1 with near complete loss of disc space. Mild degenerative disc disease remainder of the lumbar levels. The posterior elements are intact. Advanced degenerate facet joint spondylosis on the left at L4-L5 and L5-S1 with secondary neural foraminal encroachments. Severe osseous neural foraminal encroachment on the left at L5-S1. Agut-xn-[id number] neural foraminal encroachments bilaterally at L4-L5 and on the right at L5-S1. Additional mild bilateral neural foraminal encroachments at L3-L4. No concerning bone lesions. Moderate acquired spinal canal stenosis at L3-L4 secondary to degenerative changes. Severe acquired lumbar spinal canal stenosis at L4-L5. Mild acquired spinal canal stenosis L5-S1. Mild degenerative changes bilateral SI joints. Gallbladder and biliary ducts: Status post cholecystectomy. Spleen: Calcified splenic granuloma. Kidneys and ureters: Exophytic lower pole left renal cortical cyst. Vasculature: Severely atherosclerotic nonaneurysmal abdominal aorta. Lymph nodes: No retroperitoneal lymphadenopathy. Soft tissues: No paraspinal mass, fluid collection, or edema. IMPRESSION: 1. No acute lumbar fracture or traumatic subluxation. 2. Severe degenerative disc disease L4-L5 and L5-S1. 3. Advanced degenerate facet joint spondylosis on the left at L4-L5 and L5-S1. 4. Multilevel bilateral neural foraminal encroachments 5. Severe acquired spinal canal stenosis L4-L5. 6. Additional chronic findings. COMMENTS: Consistent with the [employer]'s Incidental Findings Committee white paper (J Am Christian [employer]iol 2018): Any incidental renal lesion less than 1 cm or classified as too small to characterize, or any incidental cystic renal lesion characterized as simple-appearing, is likely benign. No follow-up imaging is recommended for these lesions per consensus recommendations based on imaging criteria. Assessment and Plan *Assessment and plan (1) Acute lumbar radiculopathy: Status: Acute Category: Medical Code(s): M54.16 - Radiculopathy, lumbar region (2) Degenerative disc disease, lumbar: Status: Acute Category: Medical Code(s): M51.369 - Other intervertebral disc degeneration, lumbar region without mention of lumbar back pain or lower extremity pain (3) Lumbar spinal stenosis: Status: Acute Category: Medical Code(s): M48.061 - Spinal stenosis, lumbar region without neurogenic claudication (4) Left leg pain: Status: Acute Category: Medical Code(s): M79.605 - Pain in left leg Plan Patient is experiencing significant pain throughout her low back that does radiate down her entire left extremity with numbness and tingling. Patient did have limited range of motion of her lumbar spine with a positive leg raise and decreased sensation to light touch during today's visit. I did discuss with the patient due to these findings along with her significant imaging findings that I do believe she would benefit from a left transforaminal epidural steroid injection. Patient denies any side effects going down the right extremity. Risk and benefits of this injection were explained to the patient and she would like to proceed forward with this plan of care. Patient has tried and failed conservative therapy including continued at home stretching exercise for longer than 12 weeks. We will schedule the patient for a left transforaminal epidural steroid injection L4-L5 and L5-S1 under fluoroscopy. Patient has been instructed to contact the clinic with any concerns before the next appointment. Dr. Chamorro has reviewed this note and agrees with this plan of care. This note was dictated using voice recognition software and make contain errors or omissions. All injections are used with Lidocaine or Bupivacaine and Depo Medrol.
[2024-05-20 13:24] VITALS: BP 178/98; PULSE 122; RESP 18; O2SAT 98; BMI 26.9
== END 2024-05-20 23:59 | disposition home or self-care (01) ==
LOC: SC.PAIN 12:54
PROVIDERS: PCP Nurse Practitioner Family; Visit Provider Nurse Practitioner Family
DX: M51.16 Intervertebral disc disorders with radiculopathy, lumbar region (principal); M48.061 Spinal stenosis, lumbar region without neurogenic claudication; M79.605 Pain in left leg; Z73.89 Other problems related to life management difficulty
CPT/HCPCS: 99202; 99212; G0463

== ENCOUNTER 2024-06-25 08:44 | Day surgery (SDC) | payer MEDICARE, SELFPAY ==
[2024-06-25 09:06] VITALS: BP 152/79; PULSE 141; RESP 16; TEMP 36.2; O2SAT 97; BMI 26.9
[2024-06-25] MEDS: LIDOCAINE 1% 5ML PF VIAL 5 ML (09:43)
[2024-06-25 09:44] VITALS: BP 177/78; PULSE 118; RESP 18
[2024-06-25 09:45] VITALS: BP 177/78; PULSE 118; RESP 18
[2024-06-25 09:51] VITALS: BP 130/72; PULSE 108; RESP 16; O2SAT 96
--- NOTE | 2024-06-25 10:05 | EXP.PAIN.PRO ---
Procedure Date: 06/25/24 Time: 09:30 Anesthesiologist:: Gabriel Patterson CRNA Complications:: None Pre-procedure Diagnosis:: Degenerative disc multiple levels lumbar spine. Disc bulge L4-5, L5-S1. Lumbar postlaminectomy syndrome. Lumbar spondylosis. Multilevel lumbar facet arthropathy. Post-procedure Diagnosis:: Same Indications for Procedure:: Patient is a very pleasant 83-year-old female who comes our clinic today for left L4-5 and L5-S1 transforaminal epidural steroid injection. Patient describes low lumbar back pain off the midline to the left as well as left buttock and leg radicular symptoms to the foot. She describes the pain as constant, dull, aching, sharp, stabbing at times. She rates her pain 8/10. Procedure Details:: Details of the procedure explained to the patient. The patient was taken to procedure room placed in the prone position. The area over the lumbar spine was cleansed using chlorhexidine as a cleansing solution. Using fluoroscopy guidance markers were placed over the left border of the L4-5 and L5-S1 vertebral body. At each marker the skin and subcutaneous tissue was anesthetized using 1% lidocaine and a 25-gauge needle. At this time using fluoroscopy guidance 3 and half inch 22-gauge spinal needle was used to access the upper one third of the left L4-5 and L5-S1 foramen. Using fluoroscopy guidance in the lateral position needle position was confirmed using 0.5 mL of contrast dye. Good spread was noted in the epidural space at each level. After negative aspiration 2 mL of 1% lidocaine and 40 mg of Depo-Medrol was injected at each level. Patient tolerated procedure without difficulty. There are no complications. Plan and Disposition:: Patient was discharged without incident.
== END 2024-06-25 09:51 | disposition home or self-care (01) ==
LOC: SC.PAINP 08:45
PROVIDERS: PCP Nurse Practitioner Family; Visit Provider Nurse Anesthetist, Certified Registered
DX: M51.369 Other intervertebral disc degeneration, lumbar region without mention of lumbar back pain or lower extremity pain (principal); M96.1 Postlaminectomy syndrome, not elsewhere classified; M47.816 Spondylosis without myelopathy or radiculopathy, lumbar region
CPT/HCPCS: 64483; 64484; J1010

== ENCOUNTER 2024-07-10 09:20 | Outpatient (POV) | payer MEDICARE, SELFPAY ==
--- NOTE | 2024-07-10 10:08 | EXP.PAIN.SOA ---
[facility] Disclaimer: The information contained in this section may have been updated after the patient was seen, as this information can be updated by other users. Medical History (Updated 07/10/24 @ 10:11 by Laurita Hernandez APRN) Tachycardia Encounter for screening for diabetes mellitus Establishing care with new doctor, encounter for Asymptomatic hypertension Superficial laceration Laceration Cervical strain, acute Chondrocalcinosis of right knee Chest pain Radicular pain in left arm Left sided abdominal pain Left shoulder pain Dizziness Lightheadedness Edema Right knee sprain Knee pain Hyperlipidemia Hypertension Hypertension History of left heart catheterization (LHC) Surgical History H/O bilateral salpingo-oophorectomy H/O: hysterectomy Family History Other Family history of hypertension Social History Smoking Status: Never smoker second hand exposure: No alcohol intake: never substance use type: denies use current occupational status: retired Travel in the last 8 weeks: None household members: spouse and family housing: house current occupational exposures/hazards: No PM Subjective & Objective Subjective Subjective:: Is a pleasant 83-year-old female who presents today for follow-up of left transforaminal epidural steroid injection L4-L5 and L5-S1 on 06/25/2024. Today she rates her pain a 10 out of 10. Patient states that it took about a week for her to notice any improvement with this injection and did it gave about 50% relief however only lasted a couple of days. Patient states she is still having the severe pain in her low back and left hip that does go into her upper thigh with aching, throbbing sensations, increased pressure and some numbness. Patient states this pain has continued from March and progressively worsen. Patient states she has tried everything and nothing seems to make a difference. Patient has continued oral medication heat and ice, topicals, therapy and continued at home stretching exercise for longer than 12 weeks. Patient states the pain is unrelenting and seems always worse in the morning. She states that she cannot tolerate long rides due to the worsening pain and that she frequently has to change positions often. Her Rafi has been reviewed and is appropriate. Review of Systems: General: No recent weight changes, no fever, no sleep disturbances Respiratory: No cough, no shortness of air, no recurring pulmonary infections Cardiovascular/peripheral vascular: No chest pain, no palpitations, no edema, no shortness of breath Gastrointestinal: No new onset incontinence, normal bowel movements reported Genitourinary: No new onset incontinence Musculoskeletal: Low back pain, left hip pain, left upper thigh pain/buttocks pain Psychiatric: [Normal mood/affect] Neurological: [Denies weakness in extremities], [denies balance issues] Pain at rest (0-10 scale): 10 Objective Objective:: Physical Exam: General: Alert and oriented x3, no acute distress, pleasant and cooperative Lungs: Respirations even and unlabored, symmetrical chest expansion Eyes: PERRL Musculoskeletal: Flexion and extension of lumbar [spine] somewhat guarded secondary to pain, [antalgic gait noted] point tenderness along left SI with positive left Boy's, Edwin's, Gaenslen's, compression and distraction exam Neurological: Speech clear, no gross sensory deficit Has patient had previous pain injection?: Yes Percent improvement in pain since last injection: 50% Conservative treatment options previously tried: Home exercise plan Length of treatment: Longer than 12 weeks Meds Home Medications and Allergies Home Medications ?Medication ?Instructions ?Recorded ?Confirmed ?Type cholecalciferol (vitamin D3) 50 50 mcg PO DAILY #90 caps 10/17/23 06/25/24 Rx mcg (2,000 unit) capsule levothyroxine 112 mcg tablet 112 mcg PO DAILY #90 tabs 10/30/23 06/25/24 Rx mecobalamin (vitamin B12) 1,000 1,000 mcg PO DAILY 11/14/23 06/25/24 History mcg chewable tablet estradiol 1 mg tablet 1 mg PO DAILY #90 tabs 01/10/24 06/25/24 Rx lidocaine 5 % topical patch 1 patch topical DAILY #30 ea 04/26/24 06/25/24 Rx (Lidoderm) meloxicam 15 mg tablet 15 mg PO DAILY #30 tabs 04/26/24 06/25/24 Rx gabapentin 300 mg capsule 300 mg PO Q12H PRN pain #12 caps 05/05/24 06/25/24 Rx cyclobenzaprine 5 mg tablet 5 mg PO HS PRN muscle spasm #30 11/19/24 12/31/24 Rx tabs hydrochlorothiazide 50 mg tablet See Rx Instructions .Route 06/04/24 06/25/24 Rx .COMPLEX #90 tabs irbesartan 150 mg tablet See Rx Instructions .Route 07/05/24 Rx .COMPLEX #30 tabs methocarbamol 500 mg tablet 500 mg PO BID #28 tabs 07/10/24 Rx New Prescriptions to Start Prescriptions: methocarbamol Laurita Hernandez Allergies Allergy/AdvReac Type Severity Reaction Status Date / Time codeine Allergy Intermediate I-HIVES Verified 05/29/24 09:16 Penicillins Allergy Intermediate I-HIVES Verified 05/29/24 09:16 sertraline AdvReac Intermediate Nausea Verified 05/29/24 09:16 lisinopril AdvReac Cough Verified 05/29/24 09:16 Assessment and Plan *Assessment and plan (1) Sacroiliitis: Status: Acute Category: Medical Code(s): M46.1 - Sacroiliitis, not elsewhere classified Plan Patient is experiencing severe pain all across her low back and left hip/buttocks area. Patient did have point tenderness along her left SI and a positive left Boy's, Edwin's, Gaenslen's, compression and distraction exam. I did discuss with the patient that I do believe she would benefit from a left SI injection. Risk and benefits were discussed with patient and she would like to proceed forward with this plan of care. Patient has been experiencing this pain since March and it has progressively worsened. She has tried and failed conservative therapy including oral medications, heat and ice, topicals, at home stretching and exercise for longer than 12 weeks. I will order the patient a compounded cream and send in a 2-week dose of methocarbamol 500 mg twice daily as needed. Patient will be scheduled for a left SI injection under fluoroscopy. Patient has been instructed to contact the clinic with any concerns before the next appointment. Dr. Chamorro has reviewed this note and agrees with this plan of care. This note was dictated using voice recognition software and make contain errors or omissions. All injections are used with Lidocaine, Bupivacaine and Depo Medrol. Occasionally urine drug screen is needed to verify patient's compliance with our office pain contract. This is ordered based off specific treatments related to chronic pain with the potential to abuse certain medications.
[2024-07-10 10:57] VITALS: BP 162/88; PULSE 124; RESP 18; O2SAT 98; BMI 27.1
== END 2024-07-10 23:59 | disposition home or self-care (01) ==
PROVIDERS: PCP Nurse Practitioner Family; Visit Provider Nurse Practitioner Family
DX: M46.1 Sacroiliitis, not elsewhere classified (principal)
CPT/HCPCS: 99212; G0463

== ENCOUNTER 2024-07-23 09:50 | Day surgery (SDC) | payer MEDICARE, SELFPAY ==
[2024-07-23 10:25] VITALS: BP 153/83; PULSE 97; RESP 18; TEMP 36.6; O2SAT 99; BMI 26.9
--- NOTE | 2024-07-23 10:57 | EXP.PAIN.PRO ---
Procedure Date: 07/23/24 Time: 10:40 Anesthesiologist:: Gabriel Patterson CRNA Complications:: None Pre-procedure Diagnosis:: Left sacroiliitis Post-procedure Diagnosis:: Same Indications for Procedure:: Patient is a very pleasant 83-year-old female who comes our clinic today for a left sacroiliac joint injection of cortisone and local anesthetic. Patient describes low lumbar back pain off the midline to the left. Left posterior hip pain. Difficulty standing and/or sitting for any length of time. Difficulty transitioning from sitting to standing. She rates her pain 7/10. Procedure Details:: Procedure: Left sacroiliac injection under fluoroscopy Informed consent was obtained and the risk and benefits of the procedure were explained to the patient.~ The patient was taken to the procedure room and noninvasive monitors were placed including noninvasive blood pressure cuff and pulse oximeter.~ The patient was placed prone on the procedure table.~ The~ left hip was cleansed using Betadine as a cleansing solution.~ C-arm fluorosocpy was used to view the left SI joint.~ The skin and subcutaneous tissues were anesthetized using Lidocaine 1.5% and a 25-gauge needle.~ After this, a 22-gauge spinal needle was inserted under fluoroscopic guidance into the inferior aspect of the left SI joint.~ Omnipaque dye was injected and a good spread was seen throughout the joint.~ After this, approximately 5 mL of bupivacaine 0.25% and Depo-Medrol 40 mg was incrementally injected into the sacroiliac joint.~ The patient tolerated the procedure well with no complications.~ The patient was observed in the Pain Clinic for a period of 30-45 minutes, then discharged home neurologically intact.~ Plan and Disposition:: Patient was discharged without incident.
[2024-07-23 10:59] VITALS: BP 143/68; PULSE 89; RESP 16; TEMP 36.6; O2SAT 97
[2024-07-23] MEDS: BUPIVACAINE 0.25% 10ML INJ 25 MG IJ (13:18)
[2024-07-23 13:19] VITALS: BP 153/83; PULSE 97; RESP 18; O2SAT 99
[2024-07-23] MEDS: LIDOCAINE 1% 5ML PF VIAL 5 ML (13:19)
[2024-07-23] MEDS: methylPREDNISolone ACETATE 80MG/ML VIAL 80 MG (13:19)
[2024-07-23 13:21] VITALS: BP 153/83; PULSE 97; RESP 18; O2SAT 97
== END 2024-07-23 10:59 | disposition home or self-care (01) ==
PROVIDERS: PCP Nurse Practitioner Family; Visit Provider Nurse Anesthetist, Certified Registered
DX: M46.1 Sacroiliitis, not elsewhere classified (principal)
CPT/HCPCS: 27096; G0260; J1010

== ENCOUNTER 2024-08-08 13:45 | Outpatient (POV) | payer MEDICARE, SELFPAY ==
--- NOTE | 2024-08-08 13:49 | EXP.PAIN.SOA ---
[facility] Disclaimer: The information contained in this section may have been updated after the patient was seen, as this information can be updated by other users. Medical History Tachycardia Encounter for screening for diabetes mellitus Establishing care with new doctor, encounter for Asymptomatic hypertension Superficial laceration Laceration Cervical strain, acute Chondrocalcinosis of right knee Chest pain Radicular pain in left arm Left sided abdominal pain Left shoulder pain Dizziness Lightheadedness Edema Right knee sprain Knee pain Hyperlipidemia Hypertension Hypertension History of left heart catheterization (LHC) Surgical History H/O bilateral salpingo-oophorectomy H/O: hysterectomy Family History Other Family history of hypertension Social History (Updated 07/23/24 @ 10:26 by Leah Jacques RN) Smoking Status: Never smoker second hand exposure: No alcohol intake: never substance use type: denies use current occupational status: retired Travel in the last 8 weeks: None household members: spouse and family housing: house current occupational exposures/hazards: No PM Subjective & Objective Subjective Subjective:: Patient is a pleasant 83-year-old female who presents today for follow-up of left SI injection on 07/23/2024. Today she rates her pain a 0 out of 10. She denies any new trauma or injury. Patient does state that it did provide approximately 98 percent improvement. She states that she has had some much improvement and has been able to get out of yazidism and Grocery shopping that she has not been able to do for some time following this injection. She states she is just so very pleased and thankful for how its gone. At our last appointment she was sent in a compounded cream order into 2 weeks of 5 methocarbamol 500 mg twice a day. Her Rafi has been reviewed and is appropriate. Review of Systems: General: No recent weight changes, no fever, no sleep disturbances Respiratory: No cough, no shortness of air, no recurring pulmonary infections Cardiovascular/peripheral vascular: No chest pain, no palpitations, no edema, no shortness of breath Gastrointestinal: No new onset incontinence, normal bowel movements reported Genitourinary: No new onset incontinence Musculoskeletal: Low back pain Psychiatric: [Normal mood/affect] Neurological: [Denies weakness in extremities], [denies balance issues] Pain at rest (0-10 scale): 0 Objective Objective:: Physical Exam: General: Alert and oriented x3, no acute distress, pleasant and cooperative Lungs: Respirations even and unlabored, symmetrical chest expansion Eyes: PERRL Musculoskeletal: Flexion and extension of lumbar [spine] somewhat guarded secondary to pain, [antalgic gait noted] Neurological: Speech clear, no gross sensory deficit Has patient had previous pain injection?: Yes Percent improvement in pain since last injection: 98% Conservative treatment options previously tried: Home exercise plan Length of treatment: Longer than 12 weeks Meds Home Medications and Allergies Home Medications ?Medication ?Instructions ?Recorded ?Confirmed ?Type cholecalciferol (vitamin D3) 50 50 mcg PO DAILY #90 caps 10/17/23 07/23/24 Rx mcg (2,000 unit) capsule levothyroxine 112 mcg tablet 112 mcg PO DAILY #90 tabs 10/30/23 07/23/24 Rx mecobalamin (vitamin B12) 1,000 1,000 mcg PO DAILY 11/14/23 07/23/24 History mcg chewable tablet estradiol 1 mg tablet 1 mg PO DAILY #90 tabs 01/10/24 07/23/24 Rx lidocaine 5 % topical patch 1 patch topical DAILY #30 ea 04/26/24 07/23/24 Rx (Lidoderm) meloxicam 15 mg tablet 15 mg PO DAILY #30 tabs 04/26/24 07/23/24 Rx gabapentin 300 mg capsule 300 mg PO Q12H PRN pain #12 caps 05/05/24 07/23/24 Rx cyclobenzaprine 5 mg tablet 5 mg PO HS PRN muscle spasm #30 05/14/24 07/23/24 Rx tabs hydrochlorothiazide 50 mg tablet See Rx Instructions .Route 06/04/24 07/23/24 Rx .COMPLEX #90 tabs irbesartan 150 mg tablet See Rx Instructions .Route 07/05/24 07/23/24 Rx .COMPLEX #30 tabs methocarbamol 500 mg tablet 500 mg PO BID #28 tabs 07/10/24 07/23/24 Rx New Prescriptions to Start Prescriptions: Allergies Allergy/AdvReac Type Severity Reaction Status Date / Time codeine Allergy Intermediate I-HIVES Verified 07/23/24 10:28 Penicillins Allergy Intermediate I-HIVES Verified 07/23/24 10:28 sertraline AdvReac Intermediate Nausea Verified 07/23/24 10:28 lisinopril AdvReac Cough Verified 07/23/24 10:28 Assessment and Plan *Assessment and plan (1) Lumbar spinal stenosis: Status: Acute Category: Medical Code(s): M48.061 - Spinal stenosis, lumbar region without neurogenic claudication (2) Degenerative disc disease, lumbar: Status: Acute Category: Medical Code(s): M51.369 - Other intervertebral disc degeneration, lumbar region without mention of lumbar back pain or lower extremity pain Plan Patient has had significant improvement following her SI injection and does not require any additional injection therapy at this time. Patient will return to clinic in 6 weeks for reevaluation of symptoms and plan of care. Patient has been instructed to contact the clinic with any concerns before the next appointment. Dr. Chamorro has reviewed this note and agrees with this plan of care. This note was dictated using voice recognition software and make contain errors or omissions. All injections are used with Lidocaine, Bupivacaine and Depo Medrol. Occasionally urine drug screen is needed to verify patient's compliance with our office pain contract. This is ordered based off specific treatments related to chronic pain with the potential to abuse certain medications.
[2024-08-08 14:24] VITALS: BP 184/85; PULSE 117; RESP 18; O2SAT 97; BMI 26.9
== END 2024-08-08 23:59 | disposition home or self-care (01) ==
LOC: SC.PAIN 13:46
PROVIDERS: PCP Nurse Practitioner Family; Visit Provider Nurse Practitioner Family
DX: M48.061 Spinal stenosis, lumbar region without neurogenic claudication (principal); M51.369 Other intervertebral disc degeneration, lumbar region without mention of lumbar back pain or lower extremity pain
CPT/HCPCS: 99212; G0463

== ENCOUNTER 2024-08-28 10:00 | Outpatient (CLI) | payer MEDICARE, SELFPAY ==
[2024-08-28 10:26] LABS: Basophils # 0.1 K/mm3 (0-0.2); Basophils % 0.7 % (0.1-2.0); Eosinophils # 0.1 K/mm3 (0.0-0.4); Eosinophils % 1.3 % (0.1-12.0); Hematocrit 41.3 % (37.0-47.0); Lymphocytes # 2.2 K/mm3 (0.7-4.5); Mean Corpuscular HGB Conc 33.9 g/dL (31.8-35.4); Mean Corpuscular Hemoglobin 29.6 pg (27.0-31.2); Mean Corpuscular Volume 87.3 fl (81-99); Mean Platelet Volume 9.8 fl (7.4-10.4); Monocytes # 0.7 K/mm3 (0.1-1.0); Monocytes % 8.9 % (1.7-9.3); Neutrophils # 4.4 K/mm3 (1.8-7.8); Neutrophils % 59.6 % (37.0-80.0); Platelet Count 376 K/mm3 (142-424); Red Blood Count 4.73 M/mm3 (4.20-5.40); Red Cell Distribution Width 12.6 % (11.5-17.5); White Blood Count 7.4 K/mm3 (4.8-10.8)
[2024-08-28 11:28] LABS: Chloride 98 mmol/L (98-107); Potassium 4.2 mmoL/L (3.5-5.1); Sodium 134 mmol/L (136-145)
[2024-08-28 11:30] LABS: Anion Gap 11.2 mEq/L (5-15); Bilirubin,Unconjugated 0.3 mg/dL (0.0-1.1); Blood Urea Nitrogen 17 mg/dl (7-17); Carbon Dioxide 29 mmol/L (22.0-30.0); Estimated Glomerular Filt Rate 68 ml/min (>60); GFR (African American) 83 ML/MIN (>60)
[2024-08-28 11:31] LABS: Alanine Aminotransferase 21 U/L (12-78); Alkaline Phosphatase 77 U/L (38-126); Aspartate Amino Transferase 28 U/L (14-36); Bilirubin,Direct 0.2 mg/dl (0.0-0.4); Bilirubin,Indirect 0.3 mg/dL (0.0-0.9); Bilirubin,Total 0.5 mg/dl (0.2-1.3); Calcium 9.5 mg/dl (8.4-10.2); Chol/HDL Ratio 3.9 (1-3.5); Cholesterol 228 mg/dl (140-200); Glucose 99 mg/dl (74-100); HDL Cholesterol 58 mg/dl (40-60); Magnesium 1.5 mg/dl (1.6-2.3); Total Protein,Serum 6.4 g/dl (6.3-8.2); Triglycerides 248 mg/dl (30-150); VLDL Cholesterol 50 mg/dL (0-40)
[2024-08-28 11:43] LABS: Direct LDL Cholesterol 119.95 mg/dL (100-129)
[2024-08-28 11:49] LABS: Free T4 (Free Thyroxine) 1.48 ng/dl (0.78-2.19)
[2024-08-28 12:05] LABS: Thyroid Stimulating Hormone 1.04 uIU/mL (0.465-4.68)
== END 2024-08-28 23:59 | disposition home or self-care (01) ==
LOC: LAB 10:01
PROVIDERS: PCP Nurse Practitioner Family; Visit Provider Nurse Practitioner
DX: R00.0 Tachycardia, unspecified (principal); M48.061 Spinal stenosis, lumbar region without neurogenic claudication; I25.10 Atherosclerotic heart disease of native coronary artery without angina pectoris; R94.31 Abnormal electrocardiogram [ECG] [EKG]; E78.5 Hyperlipidemia, unspecified; I11.9 Hypertensive heart disease without heart failure
CPT/HCPCS: 36415; 80048; 80061; 80076; 83735; 84439; 84443; 85025

== ENCOUNTER 2024-09-18 13:18 | Outpatient (POV) | payer MEDICARE, SELFPAY ==
--- NOTE | 2024-09-18 13:49 | EXP.PAIN.SOA ---
[facility] Disclaimer: The information contained in this section may have been updated after the patient was seen, as this information can be updated by other users. Medical History Tachycardia Encounter for screening for diabetes mellitus Establishing care with new doctor, encounter for Asymptomatic hypertension Superficial laceration Laceration Cervical strain, acute Chondrocalcinosis of right knee Chest pain Radicular pain in left arm Left sided abdominal pain Left shoulder pain Dizziness Lightheadedness Edema Right knee sprain Knee pain Hyperlipidemia Hypertension Hypertension History of left heart catheterization (LHC) Surgical History H/O bilateral salpingo-oophorectomy 2009 H/O: hysterectomy age 39 Family History Other Family history of hypertension Social History Smoking Status: Never smoker second hand exposure: No alcohol intake: never substance use type: denies use current occupational status: retired Travel in the last 8 weeks: None household members: spouse and family housing: house current occupational exposures/hazards: No PM Subjective & Objective Subjective Subjective:: Patient is a pleasant 84-year-old female who presents today for worsening pain. Today she rates her pain a 7 out of 10. She states over the last 2 weeks she started to experience increased pain that is all across the left side of her low back and does radiate into her left buttocks and down her left leg. Patient states it has been going down to approximately the calf. Patient does state the pain is waking her up in the middle of the night and it is intense. She describes having tingling sensations like her leg is trying to go to sleep. Patient denies any radiating symptoms into the right leg. Patient is interested in any help we may be able to provide. Patient did previously have her left SI injection back in June that did provide significant relief of 98% and was working up until what she thought the last couple of weeks. Patient is prescribed methocarbamol 500 mg twice a day and compounded cream from our office. Patient is requesting refills. Her Rafi has been reviewed and is appropriate. Review of Systems: General: No recent weight changes, no fever, no sleep disturbances Respiratory: No cough, no shortness of air, no recurring pulmonary infections Cardiovascular/peripheral vascular: No chest pain, no palpitations, no edema, no shortness of breath Gastrointestinal: No new onset incontinence, normal bowel movements reported Genitourinary: No new onset incontinence Musculoskeletal: Low back pain, left leg tingling, numbness Psychiatric: [Normal mood/affect] Neurological: [Denies weakness in extremities], [denies balance issues] Pain at rest (0-10 scale): 7 Objective Objective:: Physical Exam: General: Alert and oriented x3, no acute distress, pleasant and cooperative Lungs: Respirations even and unlabored, symmetrical chest expansion Eyes: PERRL Musculoskeletal: Flexion and extension of lumbar [spine] somewhat guarded secondary to pain, [antalgic gait noted] positive left leg raise Neurological: Speech clear, no gross sensory deficit Has patient had previous pain injection?: No Conservative treatment options previously tried: Home exercise plan Length of treatment: Longer than 12 weeks Meds Home Medications and Allergies Home Medications ?Medication ?Instructions ?Recorded ?Confirmed ?Type cholecalciferol (vitamin D3) 50 50 mcg PO DAILY #90 caps 10/17/23 09/11/24 Rx mcg (2,000 unit) capsule levothyroxine 112 mcg tablet 112 mcg PO DAILY #90 tabs 10/30/23 09/11/24 Rx mecobalamin (vitamin B12) 1,000 1,000 mcg PO DAILY 11/14/23 09/11/24 History mcg chewable tablet estradiol 1 mg tablet 1 mg PO DAILY #90 tabs 01/10/24 09/11/24 Rx lidocaine 5 % topical patch 1 patch topical DAILY #30 ea 04/26/24 09/11/24 Rx (Lidoderm) hydrochlorothiazide 50 mg tablet See Rx Instructions .Route 06/04/24 09/11/24 Rx .COMPLEX #90 tabs irbesartan 150 mg tablet See Rx Instructions .Route 07/05/24 09/11/24 Rx .COMPLEX #30 tabs rosuvastatin 10 mg tablet (Crestor) 10 mg PO DAILY #30 tabs 08/28/24 09/11/24 Rx New Prescriptions to Start Prescriptions: Allergies Allergy/AdvReac Type Severity Reaction Status Date / Time codeine Allergy Intermediate I-HIVES Verified 09/11/24 09:14 Penicillins Allergy Intermediate I-HIVES Verified 09/11/24 09:14 sertraline AdvReac Intermediate Nausea Verified 09/11/24 09:14 lisinopril AdvReac Cough Verified 09/11/24 09:14 Assessment and Plan *Assessment and plan (1) Degenerative disc disease, lumbar: Status: Acute Category: Medical Code(s): M51.369 - Other intervertebral disc degeneration, lumbar region without mention of lumbar back pain or lower extremity pain (2) Lumbar spinal stenosis: Status: Acute Qualifiers: Neurogenic claudication status: unspecified Qualified Code(s): M48.061 - Spinal stenosis, lumbar region without neurogenic claudication Category: Medical Code(s): M48.061 - Spinal stenosis, lumbar region without neurogenic claudication (3) Left leg pain: Status: Acute Category: Medical Code(s): M79.605 - Pain in left leg Plan Patient is experiencing worsening pain in [her] low back with numbness and tingling into her lower extremities. Patient did have limited range of motion of her lumbar spine with a positive leg raise. I did discuss with patient that I do believe they would benefit from a lumbar epidural steroid injection. Risk and benefits were discussed with patient and the patient would like to proceed forward with this plan of care. Patient is not on any blood thinner. Patient has tried and failed conservative therapy including continued at home stretching exercise for longer than 12 weeks between injections. Patient did previously have a lumbar epidural back in May that provided 50% relief and lasted longer than 3 months. Patient has had the chronic low back pain for longer than 3 months. Patient did state today that the sensation she is feeling that radiate down her left leg are in the middle of the back of her leg going down to her calf. Patient denies any symptoms to the inside of her leg or the outside of her leg. I did discuss with the patient due to where her complaints of the numbness and tingling are located I do believe we should attempt to do a lumbar epidural at the L5-S1 level that is appropriate with the lumbar dermatome to match her complaints/symptoms. Patient agrees with this plan of care. We will schedule the patient for an LESI L5-S1 under fluoroscopy. I will also refill the patient's methocarbamol. Patient has been instructed to contact the clinic with any concerns before the next appointment. Dr. Chamorro has reviewed this note and agrees with this plan of care. This note was dictated using voice recognition software and make contain errors or omissions. All injections are used with Lidocaine, Bupivacaine and Depo Medrol. Occasionally urine drug screen is needed to verify patient's compliance with our office pain contract. This is ordered based off specific treatments related to chronic pain with the potential to abuse certain medications.
[2024-09-18 14:40] VITALS: BP 174/68; PULSE 98; RESP 18; O2SAT 100; BMI 26.9
== END 2024-09-18 23:59 | disposition home or self-care (01) ==
PROVIDERS: PCP Nurse Practitioner Family; Visit Provider Nurse Practitioner Family
DX: M51.369 Other intervertebral disc degeneration, lumbar region without mention of lumbar back pain or lower extremity pain (principal); M48.061 Spinal stenosis, lumbar region without neurogenic claudication; M79.605 Pain in left leg
CPT/HCPCS: 99212; G0463

== ENCOUNTER 2024-10-08 13:58 | Day surgery (SDC) | payer MEDICARE, SELFPAY ==
[2024-10-08 14:13] VITALS: BP 156/63; PULSE 85; RESP 16; TEMP 36.6; O2SAT 100; BMI 26.9
[2024-10-08 14:20] VITALS: BP 135/74; PULSE 83; RESP 16; O2SAT 97
[2024-10-08] MEDS: methylPREDNISolone ACETATE 80MG/ML VIAL 80 MG (14:33)
[2024-10-08 14:34] VITALS: BP 156/63; PULSE 85; RESP 18; O2SAT 98
[2024-10-08 14:42] VITALS: BP 156/63; PULSE 85; RESP 18; O2SAT 98
--- NOTE | 2024-10-08 14:47 | P.PCN_ITS ---
Procedure Date: 10/08/24 Time: 14:30 Anesthesiologist:: Gabriel Patterson CRNA Complications:: None Pre-procedure Diagnosis:: Degenerative disc lumbar spine multilevels. Lumbar radiculopathy. Lumbar disc bulge multilevel. Lumbar postlaminectomy syndrome. Post-procedure Diagnosis:: Same. Indications for Procedure:: Patient is a pleasant 84-year-old female who comes our clinic today for L5-S1 lumbar epidural steroid injection. Patient describes low lumbar back pain as well as left hip and leg radicular symptoms as constant, dull, aching, sharp, stabbing. Patient reports she has had significant amount of pain 9/10 over the last week. She has responded moderately to previous lumbar epidural steroid injections. I introduced the idea briefly of intrathecal pain pump management for her chronic pain. I gave her a brochure. She will discuss more at her follow-up visit. Procedure Details:: Procedure: Lumbar epidural steroid injection under fluoroscopy Informed consent was obtained and the risks and benefits of the procedure were e xplained to the patient. The patient was taken to the procedure room and noninvasive monitors placed, including noninvasive blood pressure cuff and pulse oximeter. The back was viewed using C-arm Fluoroscopy and prepped using Chloraprep as a cleansing solution and the L5-S1 interspace was palpated. Skin and subcutaneous tissues were anesthetized using lidocaine 1.5% and a 25-gauge needle. After this, an 18-gauge Touhy epidural needle was placed into the L5-S1 interspace and advanced using fluoroscopic guidance and loss of resistance to air until the epidural space was encountered. After confirmation of needle placement in the epidural space, with dye, a solution containing normal saline, 3 mL and Depo-Medrol 80 mg were incrementally injected into the lumbar epidural space. The patient tolerated the procedure well with no complications. The patient was observed in the Pain Clinic and then discharged home neurologically intact. Plan and Disposition:: Patient was discharged without incident.
== END 2024-10-08 14:20 | disposition home or self-care (01) ==
PROVIDERS: PCP Nurse Practitioner Family; Visit Provider Nurse Anesthetist, Certified Registered
DX: M51.16 Intervertebral disc disorders with radiculopathy, lumbar region (principal); M96.1 Postlaminectomy syndrome, not elsewhere classified
CPT/HCPCS: 62323; J1010

== ENCOUNTER 2024-10-23 10:28 | Outpatient (POV) | payer MEDICARE, SELFPAY ==
--- NOTE | 2024-10-23 10:49 | A.OFFVIS_ITS ---
[facility] Disclaimer: The information contained in this section may have been updated after the patient was seen, as this information can be updated by other users. Medical History Tachycardia Encounter for screening for diabetes mellitus Establishing care with new doctor, encounter for Asymptomatic hypertension Superficial laceration Laceration Cervical strain, acute Chondrocalcinosis of right knee Chest pain Radicular pain in left arm Left sided abdominal pain Left shoulder pain Dizziness Lightheadedness Edema Right knee sprain Knee pain Hyperlipidemia Hypertension Hypertension History of left heart catheterization (LHC) Surgical History H/O bilateral salpingo-oophorectomy 2009 H/O: hysterectomy age 39 Family History Other Family history of hypertension Social History Smoking Status: Never smoker second hand exposure: No alcohol intake: never substance use type: denies use current occupational status: retired Travel in the last 8 weeks?: None household members: spouse and family housing: house current occupational exposures/hazards: No PM Subjective & Objective Subjective Subjective:: Patient is a very pleasant 84-year-old female who presents today for follow-up of her lumbar epidural steroid injection L5-S1 on 10/08/2024. Today she rates her pain a 0 out of 10. She states that she has had at least 90% improvement following this injection and feels like she is much more functional and manageable with her pain. She does state that she will occasionally still have some but it is nothing like it was before. Patient is currently managed with compounded cream and methocarbamol 500 mg twice a day as needed. She denies any side effects. She does not need any refills. Her Rafi has been reviewed. Review of Systems: General: No recent weight changes, no fever, no sleep disturbances Respiratory: No cough, no shortness of air, no recurring pulmonary infections Cardiovascular/peripheral vascular: No chest pain, no palpitations, no edema, no shortness of breath Gastrointestinal: No new onset incontinence, normal bowel movements reported Genitourinary: No new onset incontinence Musculoskeletal: Low back pain Psychiatric: [Normal mood/affect] Neurological: [Denies weakness in extremities], [denies balance issues] Pain at rest (0-10 scale): 0 Objective Objective:: Physical Exam: General: Alert and oriented x3, no acute distress, pleasant and cooperative Lungs: Respirations even and unlabored, symmetrical chest expansion Eyes: PERRL Musculoskeletal: Flexion and extension of lumbar [spine] within normal limits Neurological: Speech clear, no gross sensory deficit Has patient had previous pain injection?: Yes Percent improvement in pain since last injection: 90% Conservative treatment options previously tried: Home exercise plan Length of treatment: Longer than 12 weeks Meds Home Medications and Allergies Home Medications ?Medication ?Instructions ?Recorded ?Confirmed ?Type cholecalciferol (vitamin D3) 50 50 mcg PO DAILY #90 caps 10/17/23 10/23/24 Rx mcg (2,000 unit) capsule levothyroxine 112 mcg tablet 112 mcg PO DAILY #90 tabs 10/30/23 10/23/24 Rx mecobalamin (vitamin B12) 1,000 1,000 mcg PO DAILY 11/14/23 10/23/24 History mcg chewable tablet estradiol 1 mg tablet 1 mg PO DAILY #90 tabs 01/10/24 10/23/24 Rx lidocaine 5 % topical patch 1 patch topical DAILY #30 ea 04/26/24 10/23/24 Rx (Lidoderm) hydrochlorothiazide 50 mg tablet See Rx Instructions .Route 06/04/24 10/23/24 Rx .COMPLEX #90 tabs irbesartan 150 mg tablet See Rx Instructions .Route 07/05/24 10/23/24 Rx .COMPLEX #30 tabs rosuvastatin 10 mg tablet (Crestor) 10 mg PO DAILY #30 tabs 08/28/24 10/23/24 Rx methocarbamol 500 mg tablet 500 mg PO BID #60 tabs 09/18/24 10/23/24 Rx New Prescriptions to Start Prescriptions: Allergies Allergy/AdvReac Type Severity Reaction Status Date / Time codeine Allergy Intermediate I-HIVES Verified 09/11/24 09:14 Penicillins Allergy Intermediate I-HIVES Verified 09/11/24 09:14 sertraline AdvReac Intermediate Nausea Verified 09/11/24 09:14 lisinopril AdvReac Cough Verified 09/11/24 09:14 Assessment and Plan *Assessment and plan (1) Lumbar spinal stenosis: Status: Acute Qualifiers: Neurogenic claudication status: unspecified Qualified Code(s): M48.061 - Spinal stenosis, lumbar region without neurogenic claudication Category: Medical Code(s): M48.061 - Spinal stenosis, lumbar region without neurogenic claudication (2) Degenerative disc disease, lumbar: Status: Acute Category: Medical Code(s): M51.369 - Other intervertebral disc degeneration, lumbar region without mention of lumbar back pain or lower extremity pain Plan Patient has had significant improvement following her lumbar epidural and does not require any additional injection therapy at this time. We did discuss the possibility of a pump in future. We will continue to follow-up on this. Patient will return to clinic in 6 weeks. Patient has been instructed to contact the clinic with any concerns before the next appointment. Dr. Chamorro has reviewed this note and agrees with this plan of care. This note was dictated using voice recognition software and make contain errors or omissions. All injections are used with Lidocaine, Bupivacaine and dexamethasone. Occasionally urine drug screen is needed to verify patient's compliance with our office pain contract. This is ordered based off specific treatments related to chronic pain with the potential to abuse certain medications.
[2024-10-23 10:53] VITALS: BP 134/73; PULSE 81; RESP 14; O2SAT 98; BMI 26.6
== END 2024-10-23 23:59 | disposition home or self-care (01) ==
LOC: SC.PAIN 10:29
PROVIDERS: PCP Nurse Practitioner Family; Visit Provider Nurse Practitioner Family
DX: M48.061 Spinal stenosis, lumbar region without neurogenic claudication (principal); M51.369 Other intervertebral disc degeneration, lumbar region without mention of lumbar back pain or lower extremity pain
CPT/HCPCS: 99212; G0463

== ENCOUNTER 2024-12-04 10:16 | Outpatient (POV) | payer MEDICARE, SELFPAY ==
--- NOTE | 2024-12-04 10:38 | EXP.PAIN.SOA ---
[facility] Disclaimer: The information contained in this section may have been updated after the patient was seen, as this information can be updated by other users. Medical History Tachycardia Encounter for screening for diabetes mellitus Establishing care with new doctor, encounter for Asymptomatic hypertension Superficial laceration Laceration Cervical strain, acute Chondrocalcinosis of right knee Chest pain Radicular pain in left arm Left sided abdominal pain Left shoulder pain Dizziness Lightheadedness Edema Right knee sprain Knee pain Hyperlipidemia Hypertension Hypertension History of left heart catheterization (LHC) Surgical History H/O bilateral salpingo-oophorectomy 2009 H/O: hysterectomy age 39 Family History Other Family history of hypertension Social History Smoking Status: Never smoker second hand exposure: No alcohol intake: never substance use type: denies use current occupational status: other Travel in the last 8 weeks?: None household members: spouse and family housing: house current occupational exposures/hazards: No PM Subjective & Objective Subjective Subjective:: Patient is a pleasant 84-year-old female who presents today for 6-week follow-up. She rates her pain a 0 out of 10. She states she is still doing really well from her lumbar epidural steroid injection L 5 through S1 on October 08 with 90% improvement it is continued to do well. She states that she will occasionally have some pain but it is much more manageable. She states that she will occasionally take a Tylenol or an ibuprofen but it is not frequent. Her Rafi has been reviewed and is appropriate. Patient is prescribed compounded cream from our office. Review of Systems: General: No recent weight changes, no fever, no sleep disturbances Respiratory: No cough, no shortness of air, no recurring pulmonary infections Cardiovascular/peripheral vascular: No chest pain, no palpitations, no edema, no shortness of breath Gastrointestinal: No new onset incontinence, normal bowel movements reported Genitourinary: No new onset incontinence Musculoskeletal: Low back pain Psychiatric: [Normal mood/affect] Neurological: [Denies weakness in extremities], [denies balance issues] Pain at rest (0-10 scale): 0 Objective Objective:: Physical Exam: General: Alert and oriented x3, no acute distress, pleasant and cooperative Lungs: Respirations even and unlabored, symmetrical chest expansion Eyes: PERRL Musculoskeletal: Flexion and extension of lumbar spine within normal limits Neurological: Speech clear, no gross sensory deficit Has patient had previous pain injection?: No Conservative treatment options previously tried: Home exercise plan Length of treatment: Longer than 12 weeks Meds Home Medications and Allergies Home Medications ?Medication ?Instructions ?Recorded ?Confirmed ?Type cholecalciferol (vitamin D3) 50 50 mcg PO DAILY #90 caps 10/17/23 10/23/24 Rx mcg (2,000 unit) capsule mecobalamin (vitamin B12) 1,000 1,000 mcg PO DAILY 11/14/23 10/23/24 History mcg chewable tablet estradiol 1 mg tablet 1 mg PO DAILY #90 tabs 01/10/24 10/23/24 Rx lidocaine 5 % topical patch 1 patch topical DAILY #30 ea 04/26/24 10/23/24 Rx (Lidoderm) hydrochlorothiazide 50 mg tablet See Rx Instructions .Route 06/04/24 10/23/24 Rx .COMPLEX #90 tabs irbesartan 150 mg tablet See Rx Instructions .Route 07/05/24 10/23/24 Rx .COMPLEX #30 tabs rosuvastatin 10 mg tablet (Crestor) 10 mg PO DAILY #30 tabs 08/28/24 10/23/24 Rx methocarbamol 500 mg tablet 500 mg PO BID #60 tabs 09/18/24 10/23/24 Rx levothyroxine 112 mcg tablet 112 mcg PO DAILY #90 tabs 10/31/24 Rx New Prescriptions to Start Prescriptions: Allergies Allergy/AdvReac Type Severity Reaction Status Date / Time codeine Allergy Intermediate I-HIVES Verified 09/11/24 09:14 Penicillins Allergy Intermediate I-HIVES Verified 09/11/24 09:14 sertraline AdvReac Intermediate Nausea Verified 09/11/24 09:14 lisinopril AdvReac Cough Verified 09/11/24 09:14 Assessment and Plan *Assessment and plan (1) Lumbar spinal stenosis: Status: Acute Qualifiers: Neurogenic claudication status: unspecified Qualified Code(s): M48.061 - Spinal stenosis, lumbar region without neurogenic claudication Category: Medical Code(s): M48.061 - Spinal stenosis, lumbar region without neurogenic claudication (2) Degenerative disc disease, lumbar: Status: Acute Category: Medical Code(s): M51.369 - Other intervertebral disc degeneration, lumbar region without mention of lumbar back pain or lower extremity pain (3) Left leg pain: Status: Acute Category: Medical Code(s): M79.605 - Pain in left leg Plan Patient continues to do well from her previous lumbar epidural and does not require any additional injection therapy at this time. Patient will return to clinic in 3 months for reevaluation of symptoms and plan of care. Patient has been instructed to contact the clinic with any concerns before the next appointment. Dr. Chamorro has reviewed this note and agrees with this plan of care. This note was dictated using voice recognition software and make contain errors or omissions. All injections are used with Lidocaine, Bupivacaine and dexamethasone. Occasionally urine drug screen is needed to verify patient's compliance with our office pain contract. This is ordered based off specific treatments related to chronic pain with the potential to abuse certain medications.
[2024-12-04 11:51] VITALS: BP 178/85; PULSE 80; RESP 18; O2SAT 97; BMI 26.6
== END 2024-12-04 23:59 | disposition home or self-care (01) ==
LOC: SC.PAIN 10:17
PROVIDERS: PCP Nurse Practitioner Family; Visit Provider Nurse Practitioner Family
DX: M51.362 Other intervertebral disc degeneration, lumbar region with discogenic back pain and lower extremity pain (principal); M48.061 Spinal stenosis, lumbar region without neurogenic claudication; Z79.1 Long term (current) use of non-steroidal anti-inflammatories (NSAID)
CPT/HCPCS: 99212; G0463

== ENCOUNTER 2025-01-22 10:58 | Outpatient (CLI) | payer MEDICARE, SELFPAY ==
[2025-01-22] VITALS (9 sets, daily range): BP systolic 133–198; BP diastolic 66–98; PULSE 59–74; RESP 18; TEMP 36.2; O2SAT 96–100; BMI 26.6
--- NOTE | 2025-01-22 11:15 | CA_ITS ---
APPROVED REPORT EXAM: Comprehensive 2D, Doppler, and color-flow Echocardiogram Machine Design Teacher: Rowan Chan CRT Ht: 5 ft 7 in Wt: 170lbs BSA: 1.89 BP: 155/83 mmHg Indications: LV Function, chest pain 2D Dimensions LA Volume 30.20 mL LA Volume Index 15.60 mL/m2 (M/F) 16-34 M-Mode Dimensions RVDd 2.61 cm (0.9-2.6) LA Diam 3.25 cm (1.9-4.0) LVDd 4.06 cm (3.5-5.7) LVDs 2.22 cm (3.5-5.7) IVSd 0.99 cm (0.6-1.1) PWd 0.71 cm (0.6-1.1) EF (Teich) 77.10% FS 45.30% EDV (Teich) 72.50 mL TAPSE 2.33 (<1.7) ESV (Teich) 16.60 mL LV Diastology E Decel Time 213 (160-240 msec) E/A Ratio 1.02 MED A' 10.80 cm/s LAT A' 14.50 cm/s Aortic Valve AO Peak GR. 6.20 mmHg Mitral Valve MV A Velocity 71.0 (40-130 cm/s) E/A Ratio 1.02 MV PHT 67.0 ms Pulmonary Valve PV Peak Velocity 76.0 (50-150 cm/s) Tricuspid Valve TR P. Velocity 255.00 cm/s RAP Estimate 10.00 mmHg RVSP 36.10 mmHg Left Ventricle The left ventricle is normal size. Left ventricular systolic function is normal. The left ventricular ejection fraction is within the normal range. There is normal left ventricular wall thickness. There is normal LV segmental wall motion. The left ventricular diastolic function is normal. LVEF is 55% Right Ventricle The right ventricle is normal size. The right ventricular systolic function is normal. Atria The left atrium is mildly dilated. Right atrium is mildly dilated. There is no color Doppler evidence of interatrial shunt. Aortic Valve The aortic valve is mildly thickened. There is no hemodynamically significant aortic valvular stenosis. No aortic regurgitation is present. Mitral Valve The mitral valve is normal in structure. No evidence of mitral valve stenosis. Trace mitral regurgitation is present. Tricuspid Valve The tricuspid valve leaflets are thin and pliable. Mild tricuspid regurgitation. RVSP is 20-25 mmHg. Pulmonic Valve The pulmonary valve is grossly normal in structure. Trace pulmonic valve regurgitation is present. Great Vessels The aortic root is normal in size. IVC is normal in size and collapses >50% with inspiration. Pericardium There is no pericardial effusion. Other Information Study Quality: Fair Conclusion Normal biventricular systolic function. Mild biatrial dilation. Mild TR. Electronically signed by : Jessica Melgoza MD 01/23/2025 11:15:30
[2025-01-22 12:18] LABS: Chloride 90 mmol/L (98-107)
[2025-01-22 12:19] LABS: Potassium 3.8 mmoL/L (3.5-5.1); Sodium 125 mmol/L (136-145)
[2025-01-22 12:21] LABS: Blood Urea Nitrogen 13 mg/dl (7-17); Creatinine Clearance Estimated 51 mL/min (50-200); Creatinine,Serum 0.60 mg/dl (0.52-1.04); Estimated Glomerular Filt Rate 95 ml/min (>60); GFR (African American) 115 ML/MIN (>60)
[2025-01-22 12:22] LABS: Anion Gap 7.8 mEq/L (5-15); Calcium 9.3 mg/dl (8.4-10.2); Carbon Dioxide 31 mmol/L (22.0-30.0); Glucose 103 mg/dl (74-100)
[2025-01-22] MEDS: METOPROLOL TARTRATE 50MG TABLET PO (12:25)
[2025-01-22] MEDS: IVABRADINE HCL 7.5MG TABLET PO (12:25)
[2025-01-22] MEDS: SODIUM CHLORIDE 0.9% 10ML SYR (RAD ONLY) 10 ML IV (13:32)
[2025-01-22] MEDS: IOPAMIDOL-370 (76%);100ML BOTTLE 80 ML IV (13:32)
[2025-01-22] MEDS: 0.9 % SODIUM CHLORIDE 50 ML VIAL IV (13:33)
[2025-01-22] MEDS: NITROGLYCERIN 0.4MG SL TABLET SL (13:33)
[2025-01-22] MEDS: METOPROLOL TARTRATE 5MG/5ML VIAL 5 MG IV (13:42)
[2025-01-22] MEDS: ACETAMINOPHEN 500MG TAB 1000 MG PO (14:10)
== END 2025-01-22 14:10 | disposition home or self-care (01) ==
PROVIDERS: PCP Nurse Practitioner Family; Visit Provider Nurse Practitioner
DX: I07.1 Rheumatic tricuspid insufficiency (principal); I25.10 Atherosclerotic heart disease of native coronary artery without angina pectoris; I11.9 Hypertensive heart disease without heart failure; K44.9 Diaphragmatic hernia without obstruction or gangrene; R94.31 Abnormal electrocardiogram [ECG] [EKG]
CPT/HCPCS: 75574; 80048; 93306; Q9967